=== PATIENT | female | born 1995 | race Caucasian/White ===

== ENCOUNTER 2017-10-28 07:30 | Inpatient (IN) | payer MEDICAID ==
[2017-10-28] MEDS ORDERED: Water For Irrigation,Sterile 1,000 ML Container IRR PRN (09:40)
[2017-10-28] MEDS ORDERED: Misoprostol 200 MCG Tab PO PRN (09:40)
[2017-10-28] MEDS ORDERED: Lidocaine 1% 50 ML MDV INJECT PRN (09:40)
[2017-10-28] MEDS ORDERED: Nalbuphine 10 MG/1 ML Vial IVPUSH PRN ×2 (09:40→19:45)
[2017-10-28] MEDS ORDERED: Tranexamic Acid 1,000 MG in Sodium Chloride 0.9% 100 ML IV PRN (09:40)
[2017-10-28] MEDS ORDERED: Carboprost Tromethamine 250 MCG/1 ML Amp IM PRN (09:40)
[2017-10-28] MEDS ORDERED: Sodium Chloride 0.9% 10 ML Syringe FLUSH PRN (09:40)
[2017-10-28] MEDS ORDERED: Butorphanol 1 MG/ML SDV IVPUSH PRN (09:40)
[2017-10-28] MEDS ORDERED: Sodium Chloride 0.9% 2.5 ML Syringe FLUSH PRN (09:40)
[2017-10-28] MEDS ORDERED: Methylergonovine 0.2 MG/1 ML Amp IM PRN (09:40)
[2017-10-28] MEDS ORDERED: Oxytocin/0.9 % Sodium Chloride 30 UNIT/500 ML BAG IV SCH ×2 (09:45→15:00)
[2017-10-28] MEDS ORDERED: Lactated Ringers 1,000 ML IV SCH ×2 (09:45→19:45)
[2017-10-28] MEDS ORDERED: Misoprostol 25 MCG (1/4 of 100 MCG) Tab PO ONE (09:45)
[2017-10-28] MEDS ORDERED: Misoprostol 25 MCG (1/4 of 100 MCG) Tab VAG ONE (09:45)
[2017-10-28] MEDS ORDERED: Ampicillin 2 GM in Sodium Chloride 0.9% 100 ML IV ONE (10:00)
[2017-10-28] MEDS ORDERED: Dextrose 5%-Lactated Ringers 1,000 ML IV SCH (10:00)
[2017-10-28] MEDS ORDERED: Terbutaline 1 MG/ML SDV SUBCUT PRN (10:16)
[2017-10-28] MEDS: Dextrose 5%-0.9% NaCl 1,000 ML IV SCH ×2 (10:34→21:41)
[2017-10-28] MEDS: Ampicillin 1 GM in Sodium Chloride 0.9% 50 ML IV SCH ×2 (13:57→17:48)
--- NOTE | 2017-10-28 16:34 | PCM.PREANE ---
Preanesthetic Assessment - Anesthesia/Transfusion/Family Hx Anesthesia History: No Prior Anesthesia Family History of Anesthesia Reaction: No - Review of Systems General: No Symptoms Pulmonary: No Symptoms Cardiovascular: No Symptoms Gastrointestinal: No Symptoms Neurological: No Symptoms Other: Reports: None - Physical Assessment Height: 5 ft 2 in Weight: 78.925 kg ASA Class: 2 Mental Status: Alert & Oriented x3 Airway Class: Mallampati = 2 Dentition: Reports: Normal Dentition Thyro-Mental Finger Breadths: 3 Mouth Opening Finger Breadths: 3 ROM/Head Extension: Full Lungs: Clear to Auscultation, Normal Respiratory Effort Cardiovascular: Regular Rate, Regular Rhythm - Lab Values: Laboratory Last Values WBC 10.24 K/uL (4.0-11.0) 10/28/17 10:00 RBC 4.36 M/uL (4.30-5.90) 10/28/17 10:00 Hgb 12.5 g/dL (12.0-16.0) 10/28/17 10:00 Hct 36.4 % (36.0-46.0) 10/28/17 10:00 MCV 83.5 fL (80.0-98.0) 10/28/17 10:00 MCH 28.7 pg (27.0-32.0) 10/28/17 10:00 MCHC 34.3 g/dL (31.0-37.0) 10/28/17 10:00 RDW Std Deviation 42.4 fl (28.0-62.0) 10/28/17 10:00 RDW Coeff of Amira 14 % (11.0-15.0) 10/28/17 10:00 Plt Count 266 K/uL (150-400) 10/28/17 10:00 MPV 9.80 fL (7.40-12.00) 10/28/17 10:00 Nucleated RBC % 0.0 /100WBC 10/28/17 10:00 Nucleated RBCs # 0 K/uL 10/28/17 10:00 POC Glucose 107 mg/dL (60-110) 10/28/17 15:11 Membrane Rupture POSITIVE 10/28/17 08:10 Blood Type B POSITIVE 10/28/17 10:00 Antibody Screen NEGATIVE 10/28/17 10:00 - Allergies Allergies/Adverse Reactions: Allergies Allergy/AdvReac Type Severity Reaction Status Date / Time No Known Allergies Allergy Verified 10/28/17 07:41 - Acknowledgements Anesthesia Type Planned: Epidural Pt an Appropriate Candidate for the Planned Anesthesia: Yes Alternatives and Risks of Anesthesia Discussed w Pt/Guardian: Yes Pt/Guardian Understands and Agrees with Anesthesia Plan: Yes PreAnesthesia Questionnaire HEENT History: Reports: None Cardiovascular History: Reports: None Respiratory History: Reports: None Gastrointestinal History: Reports: GERD Genitourinary History: Reports: None 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: : 2 Para: 0 LMP (Approximate): Musculoskeletal History: Reports: None Neurological History: Reports: Migraines Psychiatric History: Reports: Anxiety Endocrine/Metabolic History: Reports: Diabetes, Type I Hematologic History: Reports: None Immunologic History: Reports: None Oncologic (Cancer) History: Reports: None Dermatologic History: Reports: Eczema - Infectious Disease History Infectious Disease History: Reports: None - CURRENT (IN HOUSE) MEDS Current Meds: Current Medications Butorphanol Tartrate (Stadol) 1 mg IVPUSH Q1H PRN PRN Reason: Pain Carboprost Tromethamine (Hemabate Ds) 250 mcg IM ASDIRECTED PRN PRN Reason: Post Hemorrhage Tranexamic Acid 1,000 mg/ (Sodium Chloride) 110 mls @ 660 mls/hr IV ONETIME PRN PRN Reason: Bleeding Lactated Ringer's (Ringers, Lactated) 1,000 mls @ 150 mls/hr IV ASDIRECTED EL Last Infusion: 10/28/17 10:58 Dose: 30 mls/hr Oxytocin/Sodium Chloride (Oxytocin 30 Unit/500 Ml-Ns) 30 unit in 500 mls @ 999 mls/hr IV TITRATE EL Insulin Human Regular 100 unit (/ Sodium Chloride) 100 mls @ 0.5 mls/hr IV TITRATE EL; 0.5 UNIT/HR PRN Reason: Protocol Last Titration: 10/28/17 16:03 Dose: 0.5 unit/hr, 0.5 mls/hr Dextrose/Sodium Chloride (Dextrose 5%-Normal Saline) 1,000 mls @ 100 mls/hr IV ASDIRECTED EL Last Admin: 10/28/17 10:34 Dose: 100 mls/hr Ampicillin Sodium 1 gm/ Sodium (Chloride) 50 mls @ 100 mls/hr IV Q4H EL Last Admin: 10/28/17 13:57 Dose: 100 mls/hr Oxytocin/Sodium Chloride (Oxytocin 30 Unit/500 Ml-Ns) 30 unit in 500 mls @ 2 mls/hr IV TITRATE EL; 2 MUNITS/MIN PRN Reason: Protocol Last Admin: 10/28/17 15:19 Dose: 2 munits/min, 2 mls/hr Lidocaine HCl (Xylocaine 1%) 50 ml INJECT .ONCE PRN PRN Reason: Laceration repair Methylergonovine Maleate (Methergine) 0.2 mg IM ASDIRECTED PRN PRN Reason: Post Hemorrhage Misoprostol (Cytotec) 200 mcg PO .ONCE PRN PRN Reason: Post Hemorrhage Nalbuphine HCl (Nubain) 10 mg IVPUSH Q1H PRN PRN Reason: Pain (severe 7-10) Last Admin: 10/28/17 13:11 Dose: 10 mg Sodium Chloride (Saline Flush) 10 ml FLUSH ASDIRECTED PRN PRN Reason: Keep Vein Open Sodium Chloride (Saline Flush) 2.5 ml FLUSH ASDIRECTED PRN PRN Reason: Keep Vein Open Sterile Water (Sterile Water For Irrigation) 1,000 ml IRR ASDIRECTED PRN PRN Reason: delivery Terbutaline Sulfate (Brethine) 0.25 mg SUBCUT ASDIRECTED PRN PRN Reason: Tacysystole Discontinued Medications Ampicillin Sodium 2 gm/ Sodium (Chloride) 100 mls @ 200 mls/hr IV ONETIME ONE Stop: 10/28/17 10:29 Last Admin: 10/28/17 10:17 Dose: 200 mls/hr Misoprostol (Cytotec) 25 mcg PO ONETIME ONE Stop: 10/28/17 09:46 Last Admin: 10/28/17 10:22 Dose: 25 mcg Misoprostol (Cytotec) 25 mcg VAG ONETIME ONE Stop: 10/28/17 09:46 Last Admin: 10/28/17 10:45 Dose: 25 mcg
[2017-10-28] MEDS ORDERED: Terbutaline 1 MG/ML SDV SUBCUT ONE (18:07)
[2017-10-28] MEDS ORDERED: Clindamycin Phosphate in D5W 900 MG in Premix Bag 1 BAG IV ONE ×2 (18:26)
[2017-10-28] MEDS ORDERED: Clindamycin Phosphate in D5W 50 ML IV ONE (18:29)
[2017-10-28] MEDS ORDERED: Bupivacaine 0.5% 10 ML SDV ONE (18:35)
[2017-10-28] MEDS ORDERED: Ondansetron 4 MG/2 ML SDV ONE (18:55)
[2017-10-28] MEDS ORDERED: Morphine PF 1 MG/ML Amp ONE (19:03)
[2017-10-28] MEDS ORDERED: Phenylephrine/Normal Saline 100 MCG/ML 10 ML Syringe ONE (19:20)
[2017-10-28] MEDS ORDERED: Lanolin 100% Cream 7 GM Tube TOP PRN (19:40)
[2017-10-28] MEDS ORDERED: Simethicone 80 MG Tab.Chew PO PRN (19:40)
[2017-10-28] MEDS ORDERED: Bisacodyl 10 MG Supp RECTAL PRN (19:40)
[2017-10-28] MEDS ORDERED: Aluminum Hydroxide/Magnesium Hydroxide/Simethicone Susp 30 ML Cup PO PRN (19:40)
[2017-10-28] MEDS ORDERED: Ondansetron 4 MG/2 ML SDV IVPUSH PRN (19:40)
[2017-10-28] MEDS ORDERED: diphenhydrAMINE 50 MG/ML SDV IVPUSH PRN ×2 (19:40→19:45)
[2017-10-28] MEDS ORDERED: Naloxone 0.4 MG/ML Syringe IVPUSH PRN (19:45)
[2017-10-28] MEDS ORDERED: fentaNYL 100 MCG/2 ML SDV IVPUSH PRN (19:45)
--- NOTE | 2017-10-28 19:53 | PCM.OPNOTE ---
- General Post-Op/Procedure Note Date of Surgery/Procedure: 10/28/17 Operative Procedure(s): Primary LTCS Findings: Viable male APGARs 7, 9 weight 2920 gm. Intact placenta with 3v cord. Clear amniotic fluid. Normal appearing pelvis Pre Op Diagnosis: 38 weeks IUP. SROM. Abnormal heart tones Post-Op Diagnosis: Same Anesthesia Technique: Epidural Primary Surgeon: Prachi Chiu Fluid Replacement, Intraop: 1,500 EBL in mLs: 800 Condition: Good Free Text/Narrative:: Dictation [id number]
[2017-10-28] MEDS: Ketorolac 30 MG/ML SDV IVPUSH SCH (19:55)
--- NOTE | 2017-10-28 19:57 | PCM.POSTAN ---
POST ANESTHESIA ASSESSMENT - MENTAL STATUS Mental Status: Alert, Oriented - VITAL SIGNS Pulse Rate: 94 SaO2: 100 Resp Rate: 22 Blood Pressure: 97/50 - RESPIRATORY Respiratory Status: Respiratory Rate WNL, Airway Patent, O2 Saturation Stable - CARDIOVASCULAR CV Status: Pulse Rate WNL, Blood Pressure Stable - GASTROINTESTINAL GI Status: No Symptoms - PAIN Pain Score: 0 - POST OP HYDRATION Hydration Status: Adequate & Stable
--- NOTE | 2017-10-29 00:43 | OR ---
SURGEON: Prachi Chiu M.D. DATE OF PROCEDURE: 10/28/2017 PREOPERATIVE DIAGNOSES: 1. 38-week intrauterine . 2. Spontaneous rupture of membranes. 3. Abnormal heart tones. POSTOPERATIVE DIAGNOSES: 1. 38-week intrauterine . 2. Spontaneous rupture of membranes. 3. Abnormal heart tones. PROCEDURE: Primary low transverse section via Pfannenstiel skin incision. ANESTHESIA: Epidural. ESTIMATED BLOOD LOSS: 800 mL. FLUIDS: 1500 mL crystalloid. COMPLICATIONS: None. FINDINGS: Viable male. scores 7 at 1 minute, 9 at 5 minutes. Weight of 2920 g. Intact placenta and three-vessel cord. Nuchal cord noted. Clear amniotic fluid. Normal appearing pelvis. DISPOSITION: The patient to PACU, stable. to nursery. PROCEDURE DETAILS: Molly is a 22-year-old, G1, P0, at 38 weeks gestation, who presented this morning with spontaneous rupture of membranes. Clear fluid was noted. She is group B beta strep positive. She was admitted. Routine labs drawn. Ampicillin prophylaxis was initiated. With no evidence of active labor, attempted to do a Pitocin induction. This was all managed by Dr. العراقي. With the addition of Pitocin, there were variable decelerations noted. The patient underwent epidural, became more comfortable. Once she was 3 cm, an IUPC before amnioinfusion was placed as well as FSE; however, continued to have deep variables with attempted Pitocin in an effort to get the patient into labor. Therefore, given the repetitive decelerations and remote from delivery, decision was made to proceed with delivery. This decision was made by Dr. العراقي; however, at that time, we were doing change of shift recall duties and I directly assumed care of the patient as we were getting ready to go for the C- section. I discussed the case with the patient and Dr. العراقي briefly. The patient is agreeable to plan of care. The patient taken to the operating room, where she underwent spinal anesthetic, was placed in dorsal supine position with a leftward tilt. SCDs to lower extremities. Bernardo to gravity. She was prepped and draped in the usual sterile fashion. Received clindamycin prophylactically. Time-out was performed. Anesthesia was found to be adequate. Pfannenstiel skin incision was created and carried down to the level of the rectus fascia, which was incised in the midline, lateralized on either side to grasp the fascia, was tented upward, dissected sharply and bluntly away from the underlying muscle. In a similar fashion, this was performed with the inferior aspect of the fascia. Rectus muscle was in the midline and peritoneum was entered. Rectus muscle and perineum were lateralized bluntly. Uterine position and position palpated. Self-retaining retractor gently placed. Uterovesical reflection was visualized. Bladder flap was created sharply and bluntly. Bladder was mobilized away from the lower uterine segment. Low transverse hysterotomy was performed. Uterine cavity was entered bluntly with the scalpel. Hysterotomy was lateralized bluntly. Infant's head was flexed and delivered from the pelvis. Abundant cord extravasated at this time as well. The fundal pressure was applied. The head was delivered, followed by anterior shoulder, posterior shoulder, and remainder of the body without difficulty. The 's oropharynx and nares were bulb suctioned. Cord clamped x2 and cut. was handed off to attending physician, Dr. Merlos. Cord arterial, cord venous, cord blood sampling was obtained. The placenta was now delivered. Uterine cavity was cleared of all clot and debris. The hysterotomy was repaired using 0 Vicryl in a continuous running fashion followed by a re-imbricating layer. Two areas of oozing in the midline were briefly ligated with [id number] sutures. Hemostasis thereafter evident. Posterior aspect of the uterus inspected, no defects or hematomas found to be forming. The region was well irrigated and suction dried. Uterus returned to the abdominal cavity. Colonic gutters cleared of all clot and debris. Hysterotomy was inspected and found to be hemostatic. Self-retaining retractor now gently placed. Bladder blade was placed. Hysterotomy was again inspected and found to be hemostatic. Bladder blade was removed. The rectus muscles were now reapproximated using 0 Vicryl in inverted mattress suture technique. Anterior aspect of the muscle, posterior aspect of the fascia closely inspected. Any areas of oozing were cauterized. The rectus fascia was reapproximated using 0 Vicryl in a continuous running fashion beginning laterally on either side and meeting in the midline. Subcutaneous tissue was now well irrigated and suction dried. Any areas of oozing were cauterized. Skin edges were reapproximated using 3-0 Vicryl in a subcuticular fashion, followed by re-imbrication with 1/2-inch Steri-Strips and Mastisol. Uterus remains firm. Sponge, instrument, and needle counts were correct x2. The patient tolerated the procedure well. She will go to PACU in stable condition, to nursery. OWEN / KORIN /[id number]
--- NOTE | 2017-10-29 01:03 | PCM.SN ---
- Free Text/Narrative Note: I was notified on the patients discharge from PACU by the VIBRATOR EQUIPMENT TESTER that the patient had some left eye redness and swelling after administration of the Toradol. At that time I did not believe this to be from the Toradol and more likely from the patient itching her face secondary to the Duramorph. Again I was notified at 0000 by OB RN, at that time I told the nurse to notify Dr Chiu if they were truly concerned about allergic reaction. The patient does currently have Benadryl ordered if needed.
[2017-10-29] MEDS: Ketorolac 30 MG/ML SDV IVPUSH SCH ×4 (02:04→19:52)
[2017-10-29] MEDS ORDERED: NACL ONE (05:50)
[2017-10-29] MEDS ORDERED: DEXTROSE ONE (05:50)
[2017-10-29 05:58] LABS: CHLORIDE,CL 106 mmol/L (98-107); SODIUM,NA 136 mmol/L (136-145)
[2017-10-29] MEDS: Dextrose 5%-0.9% NaCl 1,000 ML IV SCH (06:04)
[2017-10-29] MEDS: Docusate Sodium 100 MG Cap PO SCH ×3 (08:05→19:59)
--- NOTE | 2017-10-29 09:59 | PCM.PNPP ---
- General Info Date of Service: 10/29/17 Functional Status: Reports: Pain Controlled, Tolerating Diet, Ambulating, Urinating - Review of Systems General: Denies: Fever, Weakness Pulmonary: Denies: Shortness of Breath Cardiovascular: Denies: Palpitations, Lightheadedness Gastrointestinal: Reports: Flatus. Denies: Nausea, Vomiting Genitourinary: Denies: Flank Pain Skin: Reports: No Symptoms Neurological: Denies: Headache Psychiatric: Reports: No Symptoms - General Info Date of Service: 10/29/17 - Patient Data Vital Signs - Most Recent: Last Vital Signs Temp 36.6 C 10/29/17 08:00 Pulse 101 H 10/29/17 09:00 Resp 16 10/29/17 09:00 BP 108/64 10/29/17 08:00 Pulse Ox 98 10/29/17 09:00 Weight - Most Recent: 78.925 kg I&O - Last 24 Hours: Intake & Output 10/28/17 10/29/17 10/29/17 22:59 06:59 14:59 Intake Total 2500 1700 Output Total 75 250 Balance 2425 1450 Lab Results - Last 24 Hours: Laboratory Results - last 24 hr 10/28/17 10/28/17 10/28/17 Range/Units 10:00 10:00 10:12 WBC 10.24 (4.0-11.0) K/uL RBC 4.36 (4.30-5.90) M/uL Hgb 12.5 (12.0-16.0) g/dL Hct 36.4 (36.0-46.0) % MCV 83.5 (80.0-98.0) fL MCH 28.7 (27.0-32.0) pg MCHC 34.3 (31.0-37.0) g/dL RDW Std Deviation 42.4 (28.0-62.0) fl RDW Coeff of Amira 14 (11.0-15.0) % Plt Count 266 (150-400) K/uL MPV 9.80 (7.40-12.00) fL Nucleated RBC % 0.0 /100WBC Nucleated RBCs # 0 K/uL Sodium (136-145) mmol/L Potassium (3.5-5.1) mmol/L Chloride (98-107) mmol/L Carbon Dioxide (21.0-32.0) mmol/L BUN (7.0-18.0) mg/dL Creatinine (0.6-1.0) mg/dL Est Cr Clr Drug Dosing mL/min Estimated GFR (MDRD) ml/min Glucose (74-106) mg/dL POC Glucose 85 (60-110) mg/dL Calcium (8.5-10.1) mg/dL Blood Type B POSITIVE Antibody Screen NEGATIVE 10/28/17 10/28/17 10/28/17 Range/Units 11:24 12:05 13:04 WBC (4.0-11.0) K/uL RBC (4.30-5.90) M/uL Hgb (12.0-16.0) g/dL Hct (36.0-46.0) % MCV (80.0-98.0) fL MCH (27.0-32.0) pg MCHC (31.0-37.0) g/dL RDW Std Deviation (28.0-62.0) fl RDW Coeff of Amira (11.0-15.0) % Plt Count (150-400) K/uL MPV (7.40-12.00) fL Nucleated RBC % /100WBC Nucleated RBCs # K/uL Sodium (136-145) mmol/L Potassium (3.5-5.1) mmol/L Chloride (98-107) mmol/L Carbon Dioxide (21.0-32.0) mmol/L BUN (7.0-18.0) mg/dL Creatinine (0.6-1.0) mg/dL Est Cr Clr Drug Dosing mL/min Estimated GFR (MDRD) ml/min Glucose (74-106) mg/dL POC Glucose 71 76 131 H (60-110) mg/dL Calcium (8.5-10.1) mg/dL Blood Type Antibody Screen 10/28/17 10/28/17 10/28/17 Range/Units 14:04 15:11 16:02 WBC (4.0-11.0) K/uL RBC (4.30-5.90) M/uL Hgb (12.0-16.0) g/dL Hct (36.0-46.0) % MCV (80.0-98.0) fL MCH (27.0-32.0) pg MCHC (31.0-37.0) g/dL RDW Std Deviation (28.0-62.0) fl RDW Coeff of Amira (11.0-15.0) % Plt Count (150-400) K/uL MPV (7.40-12.00) fL Nucleated RBC % /100WBC Nucleated RBCs # K/uL Sodium (136-145) mmol/L Potassium (3.5-5.1) mmol/L Chloride (98-107) mmol/L Carbon Dioxide (21.0-32.0) mmol/L BUN (7.0-18.0) mg/dL Creatinine (0.6-1.0) mg/dL Est Cr Clr Drug Dosing mL/min Estimated GFR (MDRD) ml/min Glucose (74-106) mg/dL POC Glucose 107 107 98 (60-110) mg/dL Calcium (8.5-10.1) mg/dL Blood Type Antibody Screen 10/28/17 10/28/17 10/28/17 Range/Units 17:07 17:54 19:44 WBC (4.0-11.0) K/uL RBC (4.30-5.90) M/uL Hgb (12.0-16.0) g/dL Hct (36.0-46.0) % MCV (80.0-98.0) fL MCH (27.0-32.0) pg MCHC (31.0-37.0) g/dL RDW Std Deviation (28.0-62.0) fl RDW Coeff of Amira (11.0-15.0) % Plt Count (150-400) K/uL MPV (7.40-12.00) fL Nucleated RBC % /100WBC Nucleated RBCs # K/uL Sodium (136-145) mmol/L Potassium (3.5-5.1) mmol/L Chloride (98-107) mmol/L Carbon Dioxide (21.0-32.0) mmol/L BUN (7.0-18.0) mg/dL Creatinine (0.6-1.0) mg/dL Est Cr Clr Drug Dosing mL/min Estimated GFR (MDRD) ml/min Glucose (74-106) mg/dL POC Glucose 105 112 H 132 H (60-110) mg/dL Calcium (8.5-10.1) mg/dL Blood Type Antibody Screen 10/28/17 10/29/17 10/29/17 Range/Units 20:45 02:34 05:25 WBC (4.0-11.0) K/uL RBC (4.30-5.90) M/uL Hgb 9.7 L (12.0-16.0) g/dL Hct 28.7 L (36.0-46.0) % MCV (80.0-98.0) fL MCH (27.0-32.0) pg MCHC (31.0-37.0) g/dL RDW Std Deviation (28.0-62.0) fl RDW Coeff of Amira (11.0-15.0) % Plt Count (150-400) K/uL MPV (7.40-12.00) fL Nucleated RBC % /100WBC Nucleated RBCs # K/uL Sodium (136-145) mmol/L Potassium (3.5-5.1) mmol/L Chloride (98-107) mmol/L Carbon Dioxide (21.0-32.0) mmol/L BUN (7.0-18.0) mg/dL Creatinine (0.6-1.0) mg/dL Est Cr Clr Drug Dosing mL/min Estimated GFR (MDRD) ml/min Glucose (74-106) mg/dL POC Glucose 125 H 94 (60-110) mg/dL Calcium (8.5-10.1) mg/dL Blood Type Antibody Screen 10/29/17 Range/Units 05:25 WBC (4.0-11.0) K/uL RBC (4.30-5.90) M/uL Hgb (12.0-16.0) g/dL Hct (36.0-46.0) % MCV (80.0-98.0) fL MCH (27.0-32.0) pg MCHC (31.0-37.0) g/dL RDW Std Deviation (28.0-62.0) fl RDW Coeff of Amira (11.0-15.0) % Plt Count (150-400) K/uL MPV (7.40-12.00) fL Nucleated RBC % /100WBC Nucleated RBCs # K/uL Sodium 136 (136-145) mmol/L Potassium 4.0 (3.5-5.1) mmol/L Chloride 106 (98-107) mmol/L Carbon Dioxide 21.6 (21.0-32.0) mmol/L BUN 12 (7.0-18.0) mg/dL Creatinine 0.6 (0.6-1.0) mg/dL Est Cr Clr Drug Dosing 118.29 mL/min Estimated GFR (MDRD) > 60.0 ml/min Glucose 91 (74-106) mg/dL POC Glucose (60-110) mg/dL Calcium 8.1 L (8.5-10.1) mg/dL Blood Type Antibody Screen Med Orders - Current: Current Medications Al Hydroxide/Mg Hydroxide (Mag-Al Plus) 30 ml PO Q8H PRN PRN Reason: Heartburn Bisacodyl (Dulcolax) 10 mg RECTAL .ONCE PRN PRN Reason: Constipation Carboprost Tromethamine (Hemabate Ds) 250 mcg IM ASDIRECTED PRN PRN Reason: Post Hemorrhage Diphenhydramine HCl (Benadryl) 25 mg IVPUSH Q6H PRN PRN Reason: Itching or Nausea Diphenhydramine HCl (Benadryl) 25 mg IVPUSH Q4H PRN PRN Reason: Itching Stop: 10/29/17 19:46 Docusate Sodium (Colace) 100 mg PO BID [facility] Last Admin: 10/29/17 08:05 Dose: 100 mg Emollient Ointment (Lansinoh Hpa) 0 gm TOP ASDIRECTED PRN PRN Reason: Sore Nipples Fentanyl (Sublimaze) 50 mcg IVPUSH Q45M PRN PRN Reason: Pain (severe 7-10) Stop: 10/29/17 19:47 Tranexamic Acid 1,000 mg/ (Sodium Chloride) 110 mls @ 660 mls/hr IV ONETIME PRN PRN Reason: Bleeding Oxytocin/Sodium Chloride (Oxytocin 30 Unit/500 Ml-Ns) 30 unit in 500 mls @ 999 mls/hr IV TITRATE [facility] Dextrose/Sodium Chloride (Dextrose 5%-Normal Saline) 1,000 mls @ 100 mls/hr IV ASDIRECTED [facility] Last Admin: 10/29/17 06:04 Dose: 100 mls/hr Ampicillin Sodium 1 gm/ Sodium (Chloride) 50 mls @ 100 mls/hr IV Q4H [facility] Last Admin: 10/28/17 17:48 Dose: 100 mls/hr Oxytocin/Sodium Chloride (Oxytocin 30 Unit/500 Ml-Ns) 30 unit in 500 mls @ 2 mls/hr IV TITRATE EL; 2 MUNITS/MIN PRN Reason: Protocol Last Titration: 10/28/17 16:00 Dose: 0 munits/min, 0 mls/hr Lactated Ringer's (Ringers, Lactated) 1,000 mls @ 125 mls/hr IV ASDIRECTED EL Ibuprofen (Motrin) 800 mg PO Q8H PRN PRN Reason: mild pain or fever Ketorolac Tromethamine (Toradol) 30 mg IVPUSH Q6H [facility] Stop: 10/29/17 19:46 Last Admin: 10/29/17 08:05 Dose: 30 mg Methylergonovine Maleate (Methergine) 0.2 mg IM ASDIRECTED PRN PRN Reason: Post Hemorrhage Misoprostol (Cytotec) 200 mcg PO .ONCE PRN PRN Reason: Post Hemorrhage Nalbuphine HCl (Nubain) 5 mg IVPUSH Q3H PRN PRN Reason: Pruritis Stop: 10/29/17 19:46 Naloxone HCl (Narcan) 0.1 mg IVPUSH ONETIME PRN PRN Reason: Respiratory Depression Stop: 10/29/17 19:46 Ondansetron HCl (Zofran) 4 mg IVPUSH Q4H PRN PRN Reason: Nausea/Vomiting Oxycodone/Acetaminophen (Percocet 325-5 Mg) 1 tab PO Q4H PRN PRN Reason: Pain (moderate 4-6) Oxycodone/Acetaminophen (Percocet 325-5 Mg) 2 tab PO Q4H PRN PRN Reason: Pain (moderate 4-6) Simethicone (Simethicone) 80 mg PO Q4H PRN PRN Reason: Gas Sodium Chloride (Saline Flush) 10 ml FLUSH ASDIRECTED PRN PRN Reason: Keep Vein Open Discontinued Medications Bupivacaine HCl (Sensorcaine-Mpf 0.5%) Confirm Administered Dose 20 ml .ROUTE .STK-MED ONE Stop: 10/28/17 18:36 Butorphanol Tartrate (Stadol) 1 mg IVPUSH Q1H PRN PRN Reason: Pain Ampicillin Sodium 2 gm/ Sodium (Chloride) 100 mls @ 200 mls/hr IV ONETIME ONE Stop: 10/28/17 10:29 Last Admin: 10/28/17 10:17 Dose: 200 mls/hr Lactated Ringer's (Ringers, Lactated) 1,000 mls @ 150 mls/hr IV ASDIRECTED EL Last Infusion: 10/28/17 10:58 Dose: 30 mls/hr Insulin Human Regular 100 unit (/ Sodium Chloride) 100 mls @ 0.5 mls/hr IV TITRATE EL; 0.5 UNIT/HR PRN Reason: Protocol Last Titration: 10/28/17 17:55 Dose: 1 unit/hr, 1 mls/hr Fentanyl/Bupivacaine HCl (Bmddomau-Jnebw-Sy 2 Mcg/Ml-0.125%) Confirm Administered Dose 100 mls @ as directed EP .STK-MED ONE Stop: 10/28/17 16:38 Clindamycin Phosphate 900 mg/ (Premix) 50 mls @ 89.286 mls/hr IV ONETIME ONE Stop: 10/28/17 18:59 Last Admin: 10/28/17 18:36 Dose: 89.286 mls/hr Clindamycin Phosphate (Cleocin In D5w) Confirm Administered Dose 50 mls @ as directed IV .STK-MED ONE Stop: 10/28/17 18:30 Dextrose/Sodium Chloride (Dextrose 5%-1/4 Ns) Confirm Administered Dose 1,000 mls @ as directed .ROUTE .STK-MED ONE Stop: 10/29/17 05:51 Lidocaine HCl (Xylocaine 1%) 50 ml INJECT .ONCE PRN PRN Reason: Laceration repair Misoprostol (Cytotec) 25 mcg PO ONETIME ONE Stop: 10/28/17 09:46 Last Admin: 10/28/17 10:22 Dose: 25 mcg Misoprostol (Cytotec) 25 mcg VAG ONETIME ONE Stop: 10/28/17 09:46 Last Admin: 10/28/17 10:45 Dose: 25 mcg Morphine Sulfate (Duramorph Pf) Confirm Administered Dose 1 mg .ROUTE .STK-MED ONE Stop: 10/28/17 19:04 Nalbuphine HCl (Nubain) 10 mg IVPUSH Q1H PRN PRN Reason: Pain (severe 7-10) Last Admin: 10/28/17 13:11 Dose: 10 mg Ondansetron HCl (Zofran) Confirm Administered Dose 4 mg .ROUTE .STK-MED ONE Stop: 10/28/17 18:56 Phenylephrine HCl (Phenylephrine In Ns 100 Mcg/Ml) Confirm Administered Dose 1 mg .ROUTE .STK-MED ONE Stop: 10/28/17 19:21 Sodium Chloride (Saline Flush) 2.5 ml FLUSH ASDIRECTED PRN PRN Reason: Keep Vein Open Sterile Water (Sterile Water For Irrigation) 1,000 ml IRR ASDIRECTED PRN PRN Reason: delivery Terbutaline Sulfate (Brethine) 0.25 mg SUBCUT ASDIRECTED PRN PRN Reason: Tacysystole Last Admin: 10/28/17 18:08 Dose: 0.25 mg Terbutaline Sulfate (Brethine) 0.25 mg SUBCUT ONETIME ONE Stop: 10/28/17 18:08 - Recovery Exam Fundal Tone: Firm Fundal Level: 1 Fingerbreadths Below Umbilicus Fundal Placement: Midline Lochia Amount: Scant Lochia Color: Rubra/Red Perineum Description: Intact, Minimal Bruising/Swelling Episiotomy/Laceration: None Bladder Status: Indwelling Catheter in Place Urinary Elimination: Indwelling Catheter - Exam General: Alert, Oriented Lungs: Normal Respiratory Effort Cardiovascular: Regular Rate, Regular Rhythm GI/Abdominal Exam: Normal Bowel Sounds, Soft Extremities: Pedal Edema (trace). No: Di's Sign Skin: Warm, Dry, Intact Wound/Incisions: Dressing Dry and Intact Psy/Mental Status: Alert, Normal Affect - Problem List & Annotations (1) delivery delivered SNOMED Code(s): 046905961 Code(s): O82 - ENCOUNTER FOR DELIVERY WITHOUT INDICATION Status: Acute Current Visit: Yes - Problem List Review Problem List Initiated/Reviewed/Updated: Yes - My Orders Last 24 Hours: My Active Orders 10/28/17 19:40 Patient Status [ADT] Routine Ambulate [RC] PER UNIT ROUTINE Communication Order [RC] PER UNIT ROUTINE Communication Order [RC] PER UNIT ROUTINE Communication Order [RC] Per Unit Routine May Shower [RC] ASDIRECTED Notify Provider Intake and Out [RC] ASDIRECTED Notify Provider Vital Signs [RC] ASDIRECTED RT Incentive Spirometry [RC] Q2HWA Acetaminophen/oxyCODONE [Percocet 325-5 MG] 1 tab PO Q4H PRN Acetaminophen/oxyCODONE [Percocet 325-5 MG] 2 tab PO Q4H PRN Alum Hydrox/Mag Hydrox/Simeth [Mag-Al Plus] 30 ml PO Q8H PRN Bisacodyl [Dulcolax] 10 mg RECTAL .ONCE PRN Lanolin [Lansinoh HPA] See Dose Instructions TOP ASDIRECTED PRN Ondansetron [Zofran] 4 mg IVPUSH Q4H PRN Simethicone 80 mg PO Q4H PRN diphenhydrAMINE [Benadryl] 25 mg IVPUSH Q6H PRN Abdominal Binder [OM.PC] Routine Assess Lochia [WOMSER] Per Unit Routine Assess Uterine Involution [WOMSER] Per Unit Routine Breast Pump [WOMSER] Per Unit Routine Heat Therapy [OM.PC] Routine Ice Therapy [OM.PC] Routine Peripheral IV Discontinue [OM.PC] Routine Sequential Compression Device [OM.PC] Per Unit Routine 10/28/17 19:41 Antiembolic Devices [RC] PER UNIT ROUTINE 10/28/17 19:45 Ketorolac [Toradol] 30 mg IVPUSH Q6H Lactated Ringers [Ringers, Lactated] 1,000 ml IV ASDIRECTED 10/28/17 21:00 Docusate Sodium [Colace] 100 mg PO BID 10/28/17 Dinner Consistent Carbohydrate Diet [DIET] 10/30/17 03:00 Ibuprofen [Motrin] 800 mg PO Q8H PRN - Assessment Assessment:: POD 1 status post primary LTCS Type I DM--insulin pump - Plan Plan:: Last glucose was 94, patient is feeling well--no symptoms of hypoglycemia. She is encouraged to ambulate later. Will remove crane and allow to shower this afternoon. Will adjust basal rate on pump as indicated by glucose monitoring.
[2017-10-29] MEDS: Acetaminophen/oxyCODONE 325-5 MG Tab PO PRN ×2 (16:01→20:20)
--- NOTE | 2017-10-29 21:35 | PCM48HPAN ---
Post Anesthesia Note - EVALUATION WITHIN 48HRS OF ANESTHETIC Vital Signs in Normal Range: Yes Patient Participated in Evaluation: Yes Respiratory Function Stable: Yes Airway Patent: Yes Cardiovascular Function Stable: Yes Hydration Status Stable: Yes Pain Control Satisfactory: Yes Nausea and Vomiting Control Satisfactory: Yes Mental Status Recovered: Yes Pulse Rate: 94 Resp Rate: 16 Blood Pressure: 97/50
[2017-10-30] MEDS ORDERED: Ibuprofen 800 MG Tab PO PRN (02:00)
[2017-10-30] MEDS: Acetaminophen/oxyCODONE 325-5 MG Tab PO PRN ×2 (03:36→07:44)
[2017-10-30] MEDS: Docusate Sodium 100 MG Cap PO SCH (08:18)
--- NOTE | 2017-10-30 10:30 | PCM.PNPP ---
- General Info Date of Service: 10/30/17 Functional Status: Reports: Pain Controlled, Tolerating Diet, Ambulating, Urinating - Review of Systems General: Denies: Fever Pulmonary: Denies: Shortness of Breath Cardiovascular: Denies: Chest Pain, Palpitations, Lightheadedness Gastrointestinal: Reports: Abdominal Pain (incisional, controlled with pain meds ). Denies: Nausea, Vomiting Genitourinary: Denies: Flank Pain Psychiatric: Reports: No Symptoms - General Info Date of Service: 10/30/17 - Patient Data Vital Signs - Most Recent: Last Vital Signs Temp 37.4 C 10/30/17 03:48 Pulse 107 H 10/30/17 03:48 Resp 16 10/30/17 03:48 BP 142/69 H 10/30/17 03:48 Pulse Ox 100 10/30/17 03:48 Weight - Most Recent: 78.925 kg I&O - Last 24 Hours: Intake & Output 10/29/17 10/30/17 10/30/17 21:59 06:59 14:59 Output Total Balance Med Orders - Current: Current Medications Al Hydroxide/Mg Hydroxide (Mag-Al Plus) 30 ml PO Q8H PRN PRN Reason: Heartburn Bisacodyl (Dulcolax) 10 mg RECTAL .ONCE PRN PRN Reason: Constipation Carboprost Tromethamine (Hemabate Ds) 250 mcg IM ASDIRECTED PRN PRN Reason: Post Hemorrhage Diphenhydramine HCl (Benadryl) 25 mg IVPUSH Q6H PRN PRN Reason: Itching or Nausea Docusate Sodium (Colace) 100 mg PO BID [facility] Last Admin: 10/30/17 08:18 Dose: 100 mg Emollient Ointment (Lansinoh Hpa) 0 gm TOP ASDIRECTED PRN PRN Reason: Sore Nipples Tranexamic Acid 1,000 mg/ (Sodium Chloride) 110 mls @ 660 mls/hr IV ONETIME PRN PRN Reason: Bleeding Oxytocin/Sodium Chloride (Oxytocin 30 Unit/500 Ml-Ns) 30 unit in 500 mls @ 999 mls/hr IV TITRATE EL Dextrose/Sodium Chloride (Dextrose 5%-Normal Saline) 1,000 mls @ 100 mls/hr IV ASDIRECTED [facility] Last Admin: 10/29/17 06:04 Dose: 100 mls/hr Oxytocin/Sodium Chloride (Oxytocin 30 Unit/500 Ml-Ns) 30 unit in 500 mls @ 2 mls/hr IV TITRATE EL; 2 MUNITS/MIN PRN Reason: Protocol Last Titration: 10/28/17 16:00 Dose: 0 munits/min, 0 mls/hr Lactated Ringer's (Ringers, Lactated) 1,000 mls @ 125 mls/hr IV ASDIRECTED EL Ibuprofen (Motrin) 800 mg PO Q8H PRN PRN Reason: mild pain or fever Last Admin: 10/30/17 03:36 Dose: 800 mg Methylergonovine Maleate (Methergine) 0.2 mg IM ASDIRECTED PRN PRN Reason: Post Hemorrhage Misoprostol (Cytotec) 200 mcg PO .ONCE PRN PRN Reason: Post Hemorrhage Ondansetron HCl (Zofran) 4 mg IVPUSH Q4H PRN PRN Reason: Nausea/Vomiting Oxycodone/Acetaminophen (Percocet 325-5 Mg) 1 tab PO Q4H PRN PRN Reason: Pain (moderate 4-6) Last Admin: 10/29/17 20:20 Dose: 1 tab Oxycodone/Acetaminophen (Percocet 325-5 Mg) 2 tab PO Q4H PRN PRN Reason: Pain (moderate 4-6) Last Admin: 10/30/17 07:44 Dose: 2 tab Simethicone (Simethicone) 80 mg PO Q4H PRN PRN Reason: Gas Sodium Chloride (Saline Flush) 10 ml FLUSH ASDIRECTED PRN PRN Reason: Keep Vein Open Discontinued Medications Bupivacaine HCl (Sensorcaine-Mpf 0.5%) Confirm Administered Dose 20 ml .ROUTE .STK-MED ONE Stop: 10/28/17 18:36 Butorphanol Tartrate (Stadol) 1 mg IVPUSH Q1H PRN PRN Reason: Pain Diphenhydramine HCl (Benadryl) 25 mg IVPUSH Q4H PRN PRN Reason: Itching Stop: 10/29/17 19:46 Fentanyl (Sublimaze) 50 mcg IVPUSH Q45M PRN PRN Reason: Pain (severe 7-10) Stop: 10/29/17 19:47 Ampicillin Sodium 2 gm/ Sodium (Chloride) 100 mls @ 200 mls/hr IV ONETIME ONE Stop: 10/28/17 10:29 Last Admin: 10/28/17 10:17 Dose: 200 mls/hr Lactated Ringer's (Ringers, Lactated) 1,000 mls @ 150 mls/hr IV ASDIRECTED [facility] Last Infusion: 10/28/17 10:58 Dose: 30 mls/hr Insulin Human Regular 100 unit (/ Sodium Chloride) 100 mls @ 0.5 mls/hr IV TITRATE EL; 0.5 UNIT/HR PRN Reason: Protocol Last Titration: 10/28/17 17:55 Dose: 1 unit/hr, 1 mls/hr Ampicillin Sodium 1 gm/ Sodium (Chloride) 50 mls @ 100 mls/hr IV Q4H EL Last Admin: 10/28/17 17:48 Dose: 100 mls/hr Fentanyl/Bupivacaine HCl (Pchcxmfd-Hknzp-Hc 2 Mcg/Ml-0.125%) Confirm Administered Dose 100 mls @ as directed EP .STK-MED ONE Stop: 10/28/17 16:38 Clindamycin Phosphate 900 mg/ (Premix) 50 mls @ 89.286 mls/hr IV ONETIME ONE Stop: 10/28/17 18:59 Last Admin: 10/28/17 18:36 Dose: 89.286 mls/hr Clindamycin Phosphate (Cleocin In D5w) Confirm Administered Dose 50 mls @ as directed IV .STK-MED ONE Stop: 10/28/17 18:30 Dextrose/Sodium Chloride (Dextrose 5%-1/4 Ns) Confirm Administered Dose 1,000 mls @ as directed .ROUTE .STK-MED ONE Stop: 10/29/17 05:51 Ketorolac Tromethamine (Toradol) 30 mg IVPUSH Q6H EL Stop: 10/29/17 19:46 Last Admin: 10/29/17 19:52 Dose: 30 mg Lidocaine HCl (Xylocaine 1%) 50 ml INJECT .ONCE PRN PRN Reason: Laceration repair Misoprostol (Cytotec) 25 mcg PO ONETIME ONE Stop: 10/28/17 09:46 Last Admin: 10/28/17 10:22 Dose: 25 mcg Misoprostol (Cytotec) 25 mcg VAG ONETIME ONE Stop: 10/28/17 09:46 Last Admin: 10/28/17 10:45 Dose: 25 mcg Morphine Sulfate (Duramorph Pf) Confirm Administered Dose 1 mg .ROUTE .STK-MED ONE Stop: 10/28/17 19:04 Nalbuphine HCl (Nubain) 10 mg IVPUSH Q1H PRN PRN Reason: Pain (severe 7-10) Last Admin: 10/28/17 13:11 Dose: 10 mg Nalbuphine HCl (Nubain) 5 mg IVPUSH Q3H PRN PRN Reason: Pruritis Stop: 10/29/17 19:46 Naloxone HCl (Narcan) 0.1 mg IVPUSH ONETIME PRN PRN Reason: Respiratory Depression Stop: 10/29/17 19:46 Ondansetron HCl (Zofran) Confirm Administered Dose 4 mg .ROUTE .STK-MED ONE Stop: 10/28/17 18:56 Phenylephrine HCl (Phenylephrine In Ns 100 Mcg/Ml) Confirm Administered Dose 1 mg .ROUTE .STK-MED ONE Stop: 10/28/17 19:21 Sodium Chloride (Saline Flush) 2.5 ml FLUSH ASDIRECTED PRN PRN Reason: Keep Vein Open Sterile Water (Sterile Water For Irrigation) 1,000 ml IRR ASDIRECTED PRN PRN Reason: delivery Terbutaline Sulfate (Brethine) 0.25 mg SUBCUT ASDIRECTED PRN PRN Reason: Tacysystole Last Admin: 10/28/17 18:08 Dose: 0.25 mg Terbutaline Sulfate (Brethine) 0.25 mg SUBCUT ONETIME ONE Stop: 10/28/17 18:08 - Recovery Exam Fundal Tone: Firm Fundal Level: 1 Fingerbreadths Below Umbilicus Fundal Placement: Midline Lochia Amount: Scant Lochia Color: Rubra/Red Perineum Description: Intact, Minimal Bruising/Swelling Episiotomy/Laceration: None Bladder Status: Voiding Urinary Elimination: Voided - Exam General: Alert Lungs: Normal Respiratory Effort Cardiovascular: Regular Rate, Regular Rhythm GI/Abdominal Exam: Normal Bowel Sounds, Soft, No Distention Extremities: Pedal Edema (trace). No: Di's Sign Skin: Warm, Dry, Intact Wound/Incisions: Healing Well, No Drainage. No: Erythema Psy/Mental Status: Alert, Normal Affect - Problem List & Annotations (1) delivery delivered SNOMED Code(s): 368317962 Code(s): O82 - ENCOUNTER FOR DELIVERY WITHOUT INDICATION Status: Acute Current Visit: Yes - Problem List Review Problem List Initiated/Reviewed/Updated: Yes - My Orders Last 24 Hours: My Active Orders 10/30/17 03:00 Ibuprofen [Motrin] 800 mg PO Q8H PRN 10/30/17 10:27 Ready for Discharge [RC] PER UNIT ROUTINE - Assessment Assessment:: POD 2 status post primary LTCS Type I DM--insulin pump - Plan Plan:: Glucoses have been well controlled, lowest has been 72. She is ready to go home today, thinks she will rest better at home. Discharge instructions reviewed. Follow up at [facility] 2 and 6 weeks. Infection and bleeding warnings reviewed. Has follow up with Dr Harman for diabetes management all ready arranged. Discharge to home.
== END 2017-10-30 10:33 | disposition home or self-care (01) | DRG 766 ==
LOC: MW.OBCHECK 07:30 → MW.OB 07:33 → MW.OBCHECK 08:14 → MW.OB 08:43 → OBSVTOIN 19:05
PROVIDERS: ADMIT Obstetrics & Gynecology; ATTEND Obstetrics & Gynecology
PROC: 10D00Z1 Extraction of Products of Conception, Low, Open Approach (ICD-10-PCS; principal; 2017-10-28)
PROC: 3E033VJ Introduction of Other Hormone into Peripheral Vein, Percutaneous Approach (ICD-10-PCS; 2017-10-28)
PROC: 10H07YZ Insertion of Other Device into Products of Conception, Via Natural or Artificial Opening (ICD-10-PCS; 2017-10-28)
PROC: 3E0E7GC Introduction of Other Therapeutic Substance into Products of Conception, Via Natural or Artificial Opening (ICD-10-PCS; 2017-10-28)
PROC: 4A1H7CZ Monitoring of Products of Conception, Cardiac Rate, Via Natural or Artificial Opening (ICD-10-PCS; 2017-10-28)
PROC: 00HU33Z Insertion of Infusion Device into Spinal Canal, Percutaneous Approach (ICD-10-PCS; 2017-10-28)
PROC: 3E0R3BZ Introduction of Anesthetic Agent into Spinal Canal, Percutaneous Approach (ICD-10-PCS; 2017-10-28)
DX: O24.02 Pre-existing type 1 diabetes mellitus, in childbirth (principal); E10.9 Type 1 diabetes mellitus without complications; O76 Abnormality in fetal heart rate and rhythm complicating labor and delivery; O99.824 Streptococcus B carrier state complicating childbirth; Z3A.38 38 weeks gestation of pregnancy; Z37.0 Single live birth; Z96.41 Presence of insulin pump (external) (internal)
CPT/HCPCS: 01967; 01968; 36415; 59025; 80048; 82962; 84112; 85014; 85018; 85027; 86850; 86900; 86901; A9270-GY; J0290; J1815-GY; J1885; J2274; J2300; J2405; J2590; J3105; J7030; J7042; J7050; J7120

== ENCOUNTER 2019-05-23 01:43 | Emergency (ER) | payer MEDICAID ==
--- NOTE | 2019-05-23 02:12 | EDM.PDOC ---
ED HPI GENERAL MEDICAL PROBLEM - General Chief Complaint: Genitourinary Problem Stated Complaint: LOWER ABDOMINAL PAIN Time Seen by Provider: 05/23/19 02:05 - History of Present Illness INITIAL COMMENTS - FREE TEXT/NARRATIVE: HISTORY AND PHYSICAL: History of present illness: Patient is a 24-year-old female with a history of irregular menstrual cycles and recently just restarted on oral contraceptives this month and presents with complaints of suprapubic pain and pressure that started after urinating this morning. In the prior 24 hours the patient had no dysuria frequency urgency flank pain abdominal pain nausea vomiting or fevers and was passing her urine without issues and had no vaginal discharge or irregular vaginal bleeding. This morning she got up to go to the bathroom and she did not have urgency or discomfort with the urination but after passing the urine she started having spasm-like contraction-like feeling in the lower mid abdomen. It does not localize right or left and it is not associated with flank pain. Patient took 2 tablets of generic ibuprofen prior to coming here. The patient is a type I diabetic who uses an insulin pump and says that her blood sugar is very variable when she is not tightly controlling her insulin and her carb intake Review of systems: As per history of present illness and below otherwise all systems reviewed and negative. Past medical history: As per history of present illness and as reviewed below otherwise noncontributory. Surgical history: As per history of present illness and as reviewed below otherwise noncontributory. Social history: No reported history of drug or alcohol abuse. Family history: As per history of present illness and as reviewed below otherwise noncontributory. Physical exam: General: Well-developed well-nourished female who is nontoxic and vital signs are noted by me. She moves easily without distress in the ED HEENT: Atraumatic, normocephalic, negative for conjunctival pallor or scleral icterus, mucous membranes moist, throat clear, neck supple, nontender, trachea midline. Lungs: Clear to auscultation, breath sounds equal bilaterally, chest nontender. Heart: S1S2, regular rate and rhythm no overt murmurs Abdomen: Soft, nondistended, hypoactive bowel sounds. There is mild discomfort with palpation in the suprapubic area but does not localize right or left and there is no rebound or guarding Negative for masses or hepatosplenomegaly. Negative for costovertebral tenderness. Pelvis: Stable nontender. Genitourinary: Deferred. Rectal: Deferred. Extremities: Atraumatic, negative for cords or calf pain. Neurovascular unremarkable. Neuro: Awake, alert, oriented. Cranial nerves II through XII unremarkable. Cerebellum unremarkable. Motor and sensory unremarkable throughout. Exam nonfocal. Diagnostics: UA with reflex urine culture UCG CBC CMP lactic acid abdominal x-rays hemoglobin A1c Therapeutics: Saline lock, Toradol Bentyl by mouth I discussed with the patient her urine test which showed greater than 1000 glucose and trace ketones as well as her blood work which revealed a normal anion gap but a blood glucose of 314. The patient is a type I diabetic and usually has insulin pump in place but she says that when the pain started she took it off and came into the ED and has been off her pump for the last 4 hours. She says that she will re-position it when she gets home. She currently is feeling improved and is aware of all of her testing results and at this point with no fever no WBC count and her history as above I do not feel that a CAT scan is indicated and she agrees. I discussed with her using an over-the- counter stool softener and possibly MiraLAX help cleanse the colon and reduced bowel spasm. She does follow with a provider at [facility] which I've asked her to reconnect in light of today's lab tests. She is aware of for hemoglobin A1c of 7.3 which is similar to her last one done in the clinic. Impression: Lower abdominal pain/spasm, colonic constipation Type 1 diabetes with mild hyperglycemia, temporarily off insulin pump Definitive disposition and diagnosis as appropriate pending reevaluation and review of above. Pelvic Pain Score (Numeric/FACES): 6 - Related Data Allergies Allergy/AdvReac Type Severity Reaction Status Date / Time No Known Allergies Allergy Verified 05/23/19 01:59 Home Meds: Home Meds Insulin Lispro [Humalog] 1 unit SUBCUT QID 05/23/19 [History] Norgestimate-Ethinyl Estradiol [Tri-Sprintec Tablet] 1 ea PO DAILY 05/23/19 [ History] valACYclovir [Valtrex] 500 mg PO DAILY 05/23/19 [History] Past Medical History HEENT History: Reports: None Cardiovascular History: Reports: None Respiratory History: Reports: None Gastrointestinal History: Reports: GERD Genitourinary History: Reports: None [employer] History: Reports: Musculoskeletal History: Reports: None Neurological History: Reports: Migraines Psychiatric History: Reports: Anxiety Endocrine/Metabolic History: Reports: Diabetes, Type I Hematologic History: Reports: None Immunologic History: Reports: None Oncologic (Cancer) History: Reports: None Dermatologic History: Reports: Eczema - Infectious Disease History Infectious Disease History: Reports: Chicken Pox - Past Surgical History Female Surgical History: Reports: Section Social & Family History - Tobacco Use Smoking Status *Q: Never Smoker Second Hand Smoke Exposure: No - Caffeine Use Caffeine Use: Reports: None - Recreational Drug Use Recreational Drug Use: No ED ROS GENERAL - Review of Systems Review Of Systems: ROS reveals no pertinent complaints other than HPI. ED EXAM, GENERAL - Physical Exam Exam: See Below (See dictation) Course - Vital Signs Last Recorded V/S: Last Vital Signs Temp 36.2 C 05/23/19 01:56 Pulse 93 05/23/19 01:56 Resp 16 05/23/19 01:56 BP 102/73 05/23/19 01:56 Pulse Ox 100 05/23/19 01:56 - Orders/Labs/Meds Orders: Active Orders 24 hr Category Date Time Status CULTURE URINE [RM] Stat Lab 05/23/19 02:23 Received Sodium Chloride 0.9% [Saline Flush] Med 05/23/19 02:36 Active 10 ml FLUSH ASDIRECTED PRN Sodium Chloride 0.9% [Saline Flush] Med 05/23/19 02:36 Active 2.5 ml FLUSH ASDIRECTED PRN Saline Lock Insert [OM.PC] Stat Oth 05/23/19 02:36 Ordered Medication Orders Sodium Chloride (Saline Flush) 10 ml FLUSH ASDIRECTED PRN PRN Reason: Keep Vein Open Last Admin: 05/23/19 03:01 Dose: 10 ml Sodium Chloride (Saline Flush) 2.5 ml FLUSH ASDIRECTED PRN PRN Reason: Keep Vein Open Last Admin: 05/23/19 03:02 Dose: 2.5 ml Labs: Laboratory Tests 05/23/19 05/23/19 05/23/19 Range/Units 02:23 02:23 02:43 WBC 8.68 (4.0-11.0) K/uL RBC 5.02 (4.30-5.90) M/uL Hgb 15.4 (12.0-16.0) g/dL Hct 42.9 (36.0-46.0) % MCV 85.5 (80.0-98.0) fL MCH 30.7 (27.0-32.0) pg MCHC 35.9 (31.0-37.0) g/dL RDW Std Deviation 36.0 (28.0-62.0) fl RDW Coeff of Amira 12 (11.0-15.0) % Plt Count 249 (150-400) K/uL MPV 9.50 (7.40-12.00) fL Neut % (Auto) 65.5 (48.0-80.0) % Lymph % (Auto) 27.8 (16.0-40.0) % Barry % (Auto) 5.4 (0.0-15.0) % Eos % (Auto) 1.0 (0.0-7.0) % Baso % (Auto) 0.3 (0.0-1.5) % Neut # (Auto) 5.7 (1.4-5.7) K/uL Lymph # (Auto) 2.4 (0.6-2.4) K/uL Barry # (Auto) 0.5 (0.0-0.8) K/uL Eos # (Auto) 0.1 (0.0-0.7) K/uL Baso # (Auto) 0.0 (0.0-0.1) K/uL Nucleated RBC % 0.0 /100WBC Nucleated RBCs # 0 K/uL Lactate (0.20-2.00) mmol/L Sodium (136-145) mmol/L Potassium (3.5-5.1) mmol/L Chloride (98-107) mmol/L Carbon Dioxide (21.0-32.0) mmol/L BUN (7.0-18.0) mg/dL Creatinine (0.6-1.0) mg/dL Est Cr Clr Drug Dosing mL/min Estimated GFR (MDRD) ml/min Glucose (74-106) mg/dL Hemoglobin A1c (4.5-6.2) % Calcium (8.5-10.1) mg/dL Total Bilirubin (0.2-1.0) mg/dL AST (15-37) IU/L ALT (14-63) IU/L Alkaline Phosphatase (46-116) U/L Total Protein (6.4-8.2) g/dL Albumin (3.4-5.0) g/dL Globulin (2.6-4.0) g/dL Albumin/Globulin Ratio (0.9-1.6) Urine Color YELLOW Urine Appearance CLEAR Urine pH 6.5 (5.0-8.0) Ur Specific [place] 1.025 (1.001-1.035) Urine Protein NEGATIVE (NEGATIVE) mg/dL Urine Glucose (UA) >=1000 (NEGATIVE) mg/dL Urine Ketones TRACE H (NEGATIVE) mg/dL Urine Occult Blood NEGATIVE (NEGATIVE) Urine Nitrite NEGATIVE (NEGATIVE) Urine Bilirubin NEGATIVE (NEGATIVE) Urine Urobilinogen 0.2 (<2.0) EU/dL Ur Leukocyte Esterase NEGATIVE (NEGATIVE) Urine HCG, Qual NEGATIVE (NEGATIVE) 05/23/19 05/23/19 05/23/19 Range/Units 02:43 02:43 02:43 WBC (4.0-11.0) K/uL RBC (4.30-5.90) M/uL Hgb (12.0-16.0) g/dL Hct (36.0-46.0) % MCV (80.0-98.0) fL MCH (27.0-32.0) pg MCHC (31.0-37.0) g/dL RDW Std Deviation (28.0-62.0) fl RDW Coeff of Amira (11.0-15.0) % Plt Count (150-400) K/uL MPV (7.40-12.00) fL Neut % (Auto) (48.0-80.0) % Lymph % (Auto) (16.0-40.0) % Barry % (Auto) (0.0-15.0) % Eos % (Auto) (0.0-7.0) % Baso % (Auto) (0.0-1.5) % Neut # (Auto) (1.4-5.7) K/uL Lymph # (Auto) (0.6-2.4) K/uL Barry # (Auto) (0.0-0.8) K/uL Eos # (Auto) (0.0-0.7) K/uL Baso # (Auto) (0.0-0.1) K/uL Nucleated RBC % /100WBC Nucleated RBCs # K/uL Lactate 1.4 (0.20-2.00) mmol/L Sodium 134 L (136-145) mmol/L Potassium 4.2 (3.5-5.1) mmol/L Chloride 98 (98-107) mmol/L Carbon Dioxide 25.0 (21.0-32.0) mmol/L BUN 14 (7.0-18.0) mg/dL Creatinine 0.8 (0.6-1.0) mg/dL Est Cr Clr Drug Dosing 87.24 mL/min Estimated GFR (MDRD) > 60.0 ml/min Glucose 314 H (74-106) mg/dL Hemoglobin A1c 7.3 H (4.5-6.2) % Calcium 9.0 (8.5-10.1) mg/dL Total Bilirubin 0.4 (0.2-1.0) mg/dL AST 13 L (15-37) IU/L ALT 13 L (14-63) IU/L Alkaline Phosphatase 73 (46-116) U/L Total Protein 8.1 (6.4-8.2) g/dL Albumin 4.0 (3.4-5.0) g/dL Globulin 4.1 H (2.6-4.0) g/dL Albumin/Globulin Ratio 1.0 (0.9-1.6) Urine Color Urine Appearance Urine pH (5.0-8.0) Ur Specific [place] (1.001-1.035) Urine Protein (NEGATIVE) mg/dL Urine Glucose (UA) (NEGATIVE) mg/dL Urine Ketones (NEGATIVE) mg/dL Urine Occult Blood (NEGATIVE) Urine Nitrite (NEGATIVE) Urine Bilirubin (NEGATIVE) Urine Urobilinogen (<2.0) EU/dL Ur Leukocyte Esterase (NEGATIVE) Urine HCG, Qual (NEGATIVE) Meds: Medications Generic Name Dose Route Start Last Admin Trade Name Freq PRN Reason Stop Dose Admin Sodium Chloride 10 ml 05/23/19 02:36 05/23/19 03:01 Saline Flush FLUSH 10 ml ASDIRECTED PRN Administration Keep Vein Open Sodium Chloride 2.5 ml 05/23/19 02:36 05/23/19 03:02 Saline Flush FLUSH 2.5 ml ASDIRECTED PRN Administration Keep Vein Open Discontinued Medications Generic Name Dose Route Start Last Admin Trade Name Jeanna PRN Reason Stop Dose Admin Ketorolac Tromethamine 30 mg 05/23/19 02:36 05/23/19 03:01 Toradol IVPUSH 05/23/19 02:37 30 mg ONETIME ONE Administration Departure - Departure Time of Disposition: 03:52 Disposition: Home, Self-Care 01 Condition: Good Clinical Impression: Colonic constipation, Type 1 diabetes mellitus with hyperglycemia, Lower abdominal pain - Discharge Information Referrals: Jose Polanco MD [Primary Care Provider] - Forms: ED Department Discharge Additional Instructions: The following information is given to patients seen in the emergency department who are being discharged to home. This information is to outline your options for follow-up care. We provide all patients seen in our emergency department with a follow-up referral. The need for follow-up, as well as the timing and circumstances, are variable depending upon the specifics of your emergency department visit. If you don't have a primary care physician on staff, we will provide you with a referral. We always advise you to contact your personal physician following an emergency department visit to inform them of the circumstance of the visit and for follow-up with them and/or the need for any referrals to a consulting specialist. The emergency department will also refer you to a specialist when appropriate. This referral assures that you have the opportunity for followup care with a specialist. All of these measure are taken in an effort to provide you with optimal care, which includes your followup. Under all circumstances we always encourage you to contact your private physician who remains a resource for coordinating your care. When calling for followup care, please make the office aware that this follow-up is from your recent emergency room visit. If for any reason you are refused follow-up, please contact the [facility] emergency department at and ask to speak to the emergency department charge nurse. [address] [place] [address] His reconnect her insulin pump immediately when you arrive home and address your blood sugar as we discussed. Push more fluids and use [id number] stool softener and/or MiraLAX to help with the constipation that was seen on your x-rays as well as the bowel spasm that is occurring. Call and schedule follow-up appointment with your provider in the clinic and return to ER as needed and as discussed - My Orders Last 24 Hours: My Active Orders 05/23/19 02:23 CULTURE URINE [RM] Stat 05/23/19 02:36 Sodium Chloride 0.9% [Saline Flush] 10 ml FLUSH ASDIRECTED PRN Sodium Chloride 0.9% [Saline Flush] 2.5 ml FLUSH ASDIRECTED PRN Saline Lock Insert [OM.PC] Stat - Assessment/Plan Last 24 Hours: My Active Orders 05/23/19 02:23 CULTURE URINE [RM] Stat 05/23/19 02:36 Sodium Chloride 0.9% [Saline Flush] 10 ml FLUSH ASDIRECTED PRN Sodium Chloride 0.9% [Saline Flush] 2.5 ml FLUSH ASDIRECTED PRN Saline Lock Insert [OM.PC] Stat
[2019-05-23] MEDS ORDERED: Ketorolac 30 MG/ML SDV IVPUSH ONE (02:36)
[2019-05-23] MEDS ORDERED: Sodium Chloride 0.9% 2.5 ML Syringe FLUSH PRN (02:36)
[2019-05-23] MEDS ORDERED: Sodium Chloride 0.9% 10 ML Syringe FLUSH PRN (02:36)
[2019-05-23 03:16] LABS: BLOOD UREA NITROGEN,BUN 14 mg/dL (7.0-18.0); CHLORIDE,CL 98 mmol/L (98-107); GLUCOSE RANDOM 314 mg/dL (74-106); POTASSIUM,K 4.2 mmol/L (3.5-5.1); SODIUM,NA 134 mmol/L (136-145)
[2019-05-23 03:31] LABS: HEMOGLOBIN A1C 7.3 % (4.5-6.2)
--- NOTE | 2019-05-23 03:34 | CR ---
INDICATION: Abdominal pain TECHNIQUE: Abdomen 3 view. COMPARISON: None FINDINGS: Bowel: Views confirm fecal retention Soft tissues: No sign of free air. No sign of soft tissue mass. No suspicious calcifications. Bones: Unremarkable for age. IMPRESSION: Diffuse colonic fecal retention. Dictated by Juma Rendon MD @ 05/23/2019 3:33:25 AM Dictated by: Juma Rendon MD @ 05/23/2019 03:33:30 (Electronically Signed)
[2019-05-23] MEDS ORDERED: Dicyclomine 10 MG Cap PO ONE (03:54)
== END 2019-05-23 04:08 | disposition home or self-care (01) ==
LOC: MW.ED 01:43
DX: K59.09 Other constipation (principal); E10.65 Type 1 diabetes mellitus with hyperglycemia
CPT/HCPCS: 36415; 74019; 80053; 81003; 81025; 83036; 83605; 85025; 87086; 96374; 99284; A9270; J1885

== ENCOUNTER 2020-03-19 13:41 | Inpatient (IN) | payer MEDICAID ==
[2020-03-19] MEDS ORDERED: ceFAZolin 2 GM in Premix Bag 1 BAG IV ONE (15:18)
[2020-03-19] MEDS ORDERED: Sodium Chloride 0.9% 10 ML SDV IV PRN (15:18)
[2020-03-19] MEDS ORDERED: Sodium Chloride 0.9% 10 ML Syringe FLUSH PRN (15:18)
[2020-03-19] MEDS ORDERED: Citric Acid/Sodium Citrate Solution 30 ML Cup PO ONE (15:18)
[2020-03-19] MEDS ORDERED: Sodium Chloride 0.9% 2.5 ML Syringe FLUSH PRN (15:18)
[2020-03-19] MEDS ORDERED: Oxytocin/0.9 % Sodium Chloride 30 UNIT/500 ML BAG IV SCH (15:30)
[2020-03-19] MEDS ORDERED: Dextrose 5%-Lactated Ringers 1,000 ML IV SCH (15:30)
[2020-03-19] MEDS: Lactated Ringers 1,000 ML IV SCH ×2 (15:45→17:15)
[2020-03-19] MEDS ORDERED: Ondansetron 4 MG/2 ML SDV ONE (15:52)
[2020-03-19] MEDS ORDERED: Morphine PF 10 MG/10 ML SDV ONE (16:00)
[2020-03-19] MEDS ORDERED: Phenylephrine 1% 10 MG/ML SDV ONE (16:04)
[2020-03-19] MEDS ORDERED: ceFAZolin 1 GM Vial ONE (16:20)
[2020-03-19] MEDS ORDERED: Sodium Chloride 0.9% 20 ML ONE (16:20)
--- NOTE | 2020-03-19 16:39 | PCM.PREANE ---
Preanesthetic Assessment - Anesthesia/Transfusion/Family Hx Anesthesia History: Prior Anesthesia Without Reaction Family History of Anesthesia Reaction: No Transfusion History: No Prior Transfusion(s) - Review of Systems General: No Symptoms Pulmonary: No Symptoms Cardiovascular: No Symptoms Gastrointestinal: No Symptoms Neurological: No Symptoms Other: Reports: None - Physical Assessment NPO Status Date: 03/18/20 Height: 5 ft 2 in Weight: 67.132 kg ASA Class: 3 Mental Status: Alert & Oriented x3 Airway Class: Mallampati = 2 Dentition: Reports: Normal Dentition ROM/Head Extension: Full Lungs: Clear to Auscultation, Normal Respiratory Effort Cardiovascular: Regular Rate, Regular Rhythm - Lab Values: Laboratory Last Values WBC 10.27 K/uL (4.0-11.0) 03/19/20 15:15 RBC 4.40 M/uL (4.30-5.90) 03/19/20 15:15 Hgb 13.1 g/dL (12.0-16.0) 03/19/20 15:15 Hct 38.2 % (36.0-46.0) 03/19/20 15:15 MCV 86.8 fL (80.0-98.0) 03/19/20 15:15 MCH 29.8 pg (27.0-32.0) 03/19/20 15:15 MCHC 34.3 g/dL (31.0-37.0) 03/19/20 15:15 RDW Std Deviation 40.3 fl (28.0-62.0) 03/19/20 15:15 RDW Coeff of Amira 13 % (11.0-15.0) 03/19/20 15:15 Plt Count 244 K/uL (150-400) 03/19/20 15:15 MPV 10.30 fL (7.40-12.00) 03/19/20 15:15 Nucleated RBC % 0.0 /100WBC 03/19/20 15:15 Nucleated RBCs # 0 K/uL 03/19/20 15:15 Urine Color YELLOW 03/19/20 14:00 Urine Appearance CLEAR 03/19/20 14:00 Urine pH 7.5 (5.0-8.0) 03/19/20 14:00 Ur Specific [place] 1.020 (1.001-1.035) 03/19/20 14:00 Urine Protein NEGATIVE mg/dL (NEGATIVE) 03/19/20 14:00 Urine Glucose (UA) NEGATIVE mg/dL (NEGATIVE) 03/19/20 14:00 Urine Ketones NEGATIVE mg/dL (NEGATIVE) 03/19/20 14:00 Urine Occult Blood NEGATIVE (NEGATIVE) 03/19/20 14:00 Urine Nitrite NEGATIVE (NEGATIVE) 03/19/20 14:00 Urine Bilirubin NEGATIVE (NEGATIVE) 03/19/20 14:00 Urine Urobilinogen 0.2 EU/dL (<2.0) 03/19/20 14:00 Ur Leukocyte Esterase NEGATIVE (NEGATIVE) 03/19/20 14:00 Membrane Rupture POSITIVE 03/19/20 14:00 Blood Type B POSITIVE 03/19/20 15:15 Antibody Screen NEGATIVE 03/19/20 15:15 - Allergies Allergies/Adverse Reactions: Allergies Allergy/AdvReac Type Severity Reaction Status Date / Time No Known Allergies Allergy Verified 03/12/20 09:29 - Blood Blood Available: Yes - Anesthesia Plan Pre-Op Medication Ordered: Other (D5 for serum glucose of 55) - Acknowledgements Anesthesia Type Planned: Spinal Pt an Appropriate Candidate for the Planned Anesthesia: Yes Alternatives and Risks of Anesthesia Discussed w Pt/Guardian: Yes Pt/Guardian Understands and Agrees with Anesthesia Plan: Yes Additional Comments: PMH: repeat c/section, IUGR, poor diabetic control, 36 week, DM1 with insulin pump now off, BMI=27, NKDA, NPO -noon, platelets-OK, COVID test pending, now verbally reported as neg, no printed results back yet PLAN: spinal with duramorph, will delay start of C/s until results of COVID magaly ting is back PreAnesthesia Questionnaire HEENT History: Reports: None Cardiovascular History: Reports: None Respiratory History: Reports: None Gastrointestinal History: Reports: GERD Genitourinary History: Reports: Other (See Below) Other Genitourinary History: finished antibiotics today 03/12/20 for UTI [employer] History: Reports: , Spontaneous Musculoskeletal History: Reports: None Neurological History: Reports: Concussion Psychiatric History: Reports: None Endocrine/Metabolic History: Reports: Diabetes, Type I Hematologic History: Reports: None Immunologic History: Reports: None Oncologic (Cancer) History: Reports: None Dermatologic History: Reports: Eczema - Infectious Disease History Infectious Disease History: Reports: Other (See Below) Other Infectious Disease History: HSV1 - Past Surgical History Head Surgeries/Procedures: Reports: None HEENT Surgical History: Reports: None Cardiovascular Surgical History: Reports: None Respiratory Surgical History: Reports: None GI Surgical History: Reports: None Female Surgical History: Reports: Section Endocrine Surgical History: Reports: None Neurological Surgical History: Reports: None Musculoskeletal Surgical History: Reports: Other (See Below) Other Musculoskeletal Surgeries/Procedures:: surgical repair of fx left pinky finger Oncologic Surgical History: Reports: None Dermatological Surgical History: Reports: Other (See Below) - SUBSTANCE USE Smoking Status *Q: Never Smoker Tobacco Use Within Last Twelve Months: No Second Hand Smoke Exposure: No Recreational Drug Use History: No - HOME MEDS Home Medications: Home Meds Insulin Lispro [Humalog] 1 injection .ROUTE ASDIRECTED 05/23/19 [History] valACYclovir [Valtrex] 500 mg PO DAILY PRN 05/23/19 [History] Aspirin [Adult Aspirin Regimen] 81 mg PO DAILY 03/12/20 [History] Omeprazole 1 tab PO DAILY 03/12/20 [History] Pnv No.95/Ferrous Fum/Folic AC [ Vitamin Tablet] 1 tab PO DAILY 03/12/20 [History] - CURRENT (IN HOUSE) MEDS Current Meds: Current Medications Dextrose/Lactated Ringer's (Dextrose 5%-Lactated Ringers) 1,000 mls @ 500 mls/hr IV BOLUS EL Oxytocin/Sodium Chloride (Oxytocin 30 Unit/500 Ml-Ns) 30 unit in 500 mls @ 250 mls/hr IV TITRATE EL Sodium Chloride (Saline Flush) 10 ml FLUSH ASDIRECTED PRN PRN Reason: Keep Vein Open Sodium Chloride (Saline Flush) 2.5 ml FLUSH ASDIRECTED PRN PRN Reason: Keep Vein Open Sodium Chloride (Normal Saline) 10 ml IV ASDIRECTED PRN PRN Reason: IV Use Discontinued Medications Cefazolin Sodium (Ancef) Confirm Administered Dose 2 gm .ROUTE .STK-MED ONE Stop: 03/19/20 16:21 Citric Acid/Sodium Citrate (Bicitra Solution) 30 ml PO ONETIME ONE Stop: 03/19/20 15:19 Cefazolin Sodium/Dextrose 2 gm (/ Premix) 50 mls @ 100 mls/hr IV ONETIME ONE Stop: 03/19/20 15:47 Sodium Chloride (Normal Saline) Confirm Administered Dose 20 mls @ as directed .ROUTE .STK-MED ONE Stop: 03/19/20 16:21 Morphine Sulfate (Duramorph Pf) Confirm Administered Dose 10 mg .ROUTE .STK-MED ONE Stop: 03/19/20 16:01 Ondansetron HCl (Zofran) Confirm Administered Dose 4 mg .ROUTE .STK-MED ONE Stop: 03/19/20 15:53 Phenylephrine HCl (Doyle-Synephrine) Confirm Administered Dose 10 mg .ROUTE .STK- MED ONE Stop: 03/19/20 16:05
[2020-03-19] MEDS ORDERED: fentaNYL 100 MCG/2 ML SDV IVPUSH PRN (16:41)
[2020-03-19] MEDS ORDERED: Nalbuphine 10 MG/1 ML Vial IVPUSH PRN (16:41)
[2020-03-19] MEDS ORDERED: Acetaminophen/oxyCODONE 325-5 MG Tab PO PRN (16:41)
--- NOTE | 2020-03-19 19:20 | PCM.OPNOTE ---
<Sola Mayo - Last Filed: 03/19/20 19:29> - General Post-Op/Procedure Note Date of Surgery/Procedure: 03/19/20 Operative Procedure(s): Repeat low transverse Caesarean section Pre Op Diagnosis: Anesthesia Technique: Spinal Primary Surgeon: Federico Pearce Anesthesia Provider: Moreno Piña Reason Hearing Aid Consultant Was Necessary: Hearing Aid Consultant Sola Mayo MSVI Pathology: Intact placenta with membranes Fluid Replacement, Intraop: 1,500 Output, Urine Amount: 150 EBL in mLs: 900 Complications: None Condition: Good Free Text/Narrative:: Intake & Output 03/19/20 03/19/20 03/19/20 06:59 14:59 22:59 Output Total 150 Balance -150 Live male born at 1804 weighing 2440g, APGARS 5 and 8 at 1 and 5 minutes respectively <Federico Pearce - Last Filed: 03/19/20 19:41> - General Post-Op/Procedure Note Pre Op Diagnosis: 24yo @ 37w0d for Repeat . Type 1 DM. GBS positive. PROM Post-Op Diagnosis: same Free Text/Narrative:: Intake & Output 03/19/20 03/19/20 03/19/20 06:59 14:59 22:59 Intake Total 1500 Output Total 300 Balance 1200
[2020-03-19] MEDS ORDERED: Tranexamic Acid 1,000 MG in Sodium Chloride 0.9% 100 ML IV PRN (19:41)
[2020-03-19] MEDS ORDERED: Lanolin 100% Cream 7 GM Tube TOP PRN (19:41)
[2020-03-19] MEDS ORDERED: Oxytocin 10 Units/1 ML SDV IM PRN (19:41)
[2020-03-19] MEDS ORDERED: Misoprostol 200 MCG Tab RECTAL PRN (19:41)
[2020-03-19] MEDS ORDERED: Bisacodyl 10 MG Supp RECTAL PRN (19:41)
[2020-03-19] MEDS ORDERED: Methylergonovine 0.2 MG/1 ML Amp IM PRN (19:41)
[2020-03-19] MEDS ORDERED: Ondansetron 4 MG/2 ML SDV IVPUSH PRN (19:41)
[2020-03-19] MEDS ORDERED: Oxytocin/Lactated Ringers 30 UNIT/500 ML BAG IV SCH (19:45)
[2020-03-19] MEDS ORDERED: Lactated Ringers 1,000 ML IV SCH (19:45)
--- NOTE | 2020-03-19 19:53 | PCM.POSTAN ---
POST ANESTHESIA ASSESSMENT - MENTAL STATUS Mental Status: Alert - RESPIRATORY Respiratory Status: Respiratory Rate WNL - CARDIOVASCULAR CV Status: Pulse Rate WNL - GASTROINTESTINAL GI Status: No Symptoms - POST OP HYDRATION Hydration Status: Adequate & Stable
[2020-03-19] MEDS: diphenhydrAMINE 50 MG/ML SDV IVPUSH PRN (22:15)
[2020-03-19] MEDS ORDERED: Acetaminophen/HYDROcodone 325-5 MG Tab PO PRN (23:20)
[2020-03-20] MEDS: Lactated Ringers 1,000 ML IV SCH (00:10)
[2020-03-20] MEDS: Ketorolac 30 MG/ML SDV IVPUSH SCH ×4 (01:10→18:48)
--- NOTE | 2020-03-20 06:45 | PCM.PNPP ---
<Sola Mayo - Last Filed: 03/20/20 06:39> - General Info Date of Service: 03/20/20 Admission Dx/Problem (Free Text): Repeat low transverse c section with ROM Functional Status: Reports: Pain Controlled (Having some pain, waiting for next dose of Tylenol at 0700) - Review of Systems General: Reports: No Symptoms (Not yet passing flatus, has not yet ambulated) HEENT: Reports: No Symptoms Pulmonary: Reports: No Symptoms Cardiovascular: Reports: No Symptoms Gastrointestinal: Reports: No Symptoms Genitourinary: Reports: No Symptoms Musculoskeletal: Reports: No Symptoms Skin: Reports: No Symptoms Neurological: Reports: No Symptoms Psychiatric: Reports: No Symptoms - General Info Date of Service: 03/20/20 - Patient Data Vital Signs - Most Recent: Last Vital Signs Temp 97.8 F 03/20/20 05:00 Pulse 87 03/20/20 06:00 Resp 14 03/20/20 06:00 BP 106/62 03/20/20 05:00 Pulse Ox 98 03/20/20 06:00 Weight - Most Recent: 67.132 kg I&O - Last 24 Hours: Intake & Output 03/19/20 03/19/20 03/20/20 14:59 22:59 06:59 Intake Total 1500 720 Output Total 300 750 Balance 1200 -30 Lab Results - Last 24 Hours: Laboratory Results - last 24 hr 03/19/20 03/19/20 03/19/20 Range/Units 14:00 14:00 15:15 WBC 10.27 (4.0-11.0) K/uL RBC 4.40 (4.30-5.90) M/uL Hgb 13.1 (12.0-16.0) g/dL Hct 38.2 (36.0-46.0) % MCV 86.8 (80.0-98.0) fL MCH 29.8 (27.0-32.0) pg MCHC 34.3 (31.0-37.0) g/dL RDW Std Deviation 40.3 (28.0-62.0) fl RDW Coeff of Amira 13 (11.0-15.0) % Plt Count 244 (150-400) K/uL MPV 10.30 (7.40-12.00) fL Nucleated RBC % 0.0 /100WBC Nucleated RBCs # 0 K/uL Urine Color YELLOW Urine Appearance CLEAR Urine pH 7.5 (5.0-8.0) Ur Specific [place] 1.020 (1.001-1.035) Urine Protein NEGATIVE (NEGATIVE) mg/dL Urine Glucose (UA) NEGATIVE (NEGATIVE) mg/dL Urine Ketones NEGATIVE (NEGATIVE) mg/dL Urine Occult Blood NEGATIVE (NEGATIVE) Urine Nitrite NEGATIVE (NEGATIVE) Urine Bilirubin NEGATIVE (NEGATIVE) Urine Urobilinogen 0.2 (<2.0) EU/dL Ur Leukocyte Esterase NEGATIVE (NEGATIVE) Membrane Rupture POSITIVE SARS Virus RNA (PCR) (NEGATIVE) Blood Type Antibody Screen 03/19/20 03/19/20 03/20/20 Range/Units 15:15 15:34 05:58 WBC (4.0-11.0) K/uL RBC (4.30-5.90) M/uL Hgb 10.2 L (12.0-16.0) g/dL Hct 30.6 L (36.0-46.0) % MCV (80.0-98.0) fL MCH (27.0-32.0) pg MCHC (31.0-37.0) g/dL RDW Std Deviation (28.0-62.0) fl RDW Coeff of Amira (11.0-15.0) % Plt Count (150-400) K/uL MPV (7.40-12.00) fL Nucleated RBC % /100WBC Nucleated RBCs # K/uL Urine Color Urine Appearance Urine pH (5.0-8.0) Ur Specific [place] (1.001-1.035) Urine Protein (NEGATIVE) mg/dL Urine Glucose (UA) (NEGATIVE) mg/dL Urine Ketones (NEGATIVE) mg/dL Urine Occult Blood (NEGATIVE) Urine Nitrite (NEGATIVE) Urine Bilirubin (NEGATIVE) Urine Urobilinogen (<2.0) EU/dL Ur Leukocyte Esterase (NEGATIVE) Membrane Rupture SARS Virus RNA (PCR) NEGATIVE (NEGATIVE) Blood Type B POSITIVE Antibody Screen NEGATIVE Med Orders - Current: Current Medications Hydrocodone Bitart/Acetaminophen ([place] 325-5 Mg) 2 tab PO Q4H PRN PRN Reason: Pain (moderate 4-6) Bisacodyl (Dulcolax) 10 mg RECTAL ONETIME PRN PRN Reason: Constipation Diphenhydramine HCl (Benadryl) 25 mg IVPUSH Q6H PRN PRN Reason: Itching or Nausea Last Admin: 03/19/20 22:15 Dose: 25 mg Documented by: Docusate Sodium (Colace) 100 mg PO BID [facility] Emollient Ointment (Lansinoh Hpa) 0 gm TOP ASDIRECTED PRN PRN Reason: Sore Nipples Fentanyl (Sublimaze) 50 mcg IVPUSH Q5M PRN PRN Reason: Pain (severe 7-10) Stop: 03/20/20 16:41 Dextrose/Lactated Ringer's (Dextrose 5%-Lactated Ringers) 1,000 mls @ 500 mls/hr IV BOLUS [facility] Last Admin: 03/19/20 15:05 Dose: 500 mls/hr Documented by: Oxytocin/Sodium Chloride (Oxytocin 30 Unit/500 Ml-Ns) 30 unit in 500 mls @ 250 mls/hr IV TITRATE [facility] Lactated Ringer's (Ringers, Lactated) 1,000 mls @ 125 mls/hr IV ASDIRECTED [facility] Last Admin: 03/20/20 00:10 Dose: 125 mls/hr Documented by: Lactated Ringer's (Ringers, Lactated) 1,000 mls @ 125 mls/hr IV ASDIRECTED [facility] Oxytocin/Lactated Ringer's (Pitocin In Lr 30 Units/500 Ml) 30 unit in 500 mls @ 125 mls/hr IV TITRATE [facility]; Protocol Tranexamic Acid 1,000 mg/ (Sodium Chloride) 110 mls @ 660 mls/hr IV ONETIME PRN PRN Reason: Bleeding Ibuprofen (Motrin) 800 mg PO Q8H PRN PRN Reason: mild pain or fever Ketorolac Tromethamine (Toradol) 30 mg IVPUSH Q6H [facility] Stop: 03/20/20 19:01 Last Admin: 03/20/20 01:10 Dose: 30 mg Documented by: Methylergonovine Maleate (Methergine) 0.2 mg IM ONETIME PRN PRN Reason: Excessive Vaginal Bleeding Misoprostol (Cytotec) 1,000 mcg RECTAL ONETIME PRN PRN Reason: excessive bleeding Nalbuphine HCl (Nubain) 2.5 mg IVPUSH Q3H PRN PRN Reason: Pruritis Stop: 03/20/20 16:42 Ondansetron HCl (Zofran) 4 mg IVPUSH Q4H PRN PRN Reason: Nausea/Vomiting Oxycodone/Acetaminophen (Percocet 325-5 Mg) 1 tab PO ONETIME PRN PRN Reason: Pain (moderate 4-6) Oxycodone/Acetaminophen (Percocet 325-5 Mg) 1 tab PO Q4H PRN PRN Reason: Pain (moderate 4-6) Oxycodone/Acetaminophen (Percocet 325-5 Mg) 2 tab PO Q4H PRN PRN Reason: Pain (moderate 4-6) Oxytocin (Pitocin) 10 unit IM ASDIRECTED PRN PRN Reason: Excessive Vaginal Bleeding Sodium Chloride (Saline Flush) 10 ml FLUSH ASDIRECTED PRN PRN Reason: Keep Vein Open Sodium Chloride (Saline Flush) 2.5 ml FLUSH ASDIRECTED PRN PRN Reason: Keep Vein Open Sodium Chloride (Normal Saline) 10 ml IV ASDIRECTED PRN PRN Reason: IV Use Discontinued Medications Cefazolin Sodium (Ancef) Confirm Administered Dose 2 gm .ROUTE .STK-MED ONE Stop: 03/19/20 16:21 Citric Acid/Sodium Citrate (Bicitra Solution) 30 ml PO ONETIME ONE Stop: 03/19/20 15:19 Last Admin: 03/19/20 17:15 Dose: 30 ml Documented by: Cefazolin Sodium/Dextrose 2 gm (/ Premix) 50 mls @ 100 mls/hr IV ONETIME ONE Stop: 03/19/20 15:47 Sodium Chloride (Normal Saline) Confirm Administered Dose 20 mls @ as directed .ROUTE .STK-MED ONE Stop: 03/19/20 16:21 Morphine Sulfate (Duramorph Pf) Confirm Administered Dose 10 mg .ROUTE .STK-MED ONE Stop: 03/19/20 16:01 Ondansetron HCl (Zofran) Confirm Administered Dose 4 mg .ROUTE .STK-MED ONE Stop: 03/19/20 15:53 Phenylephrine HCl (Doyle-Synephrine) Confirm Administered Dose 10 mg .ROUTE .STK- MED ONE Stop: 03/19/20 16:05 - Interaction Disposition, : [place] in Room with Family Interaction: Holding Infant Feeding: Attempted ; Nursed Fair/Poor (Having trouble latching) Support Person: Significant Other - Recovery Exam Fundal Tone: Firm Fundal Level: 1 Fingerbreadths Below Umbilicus Fundal Placement: Midline Lochia Amount: Scant Lochia Color: Rubra/Red Perineum Description: Intact, Minimal Bruising/Swelling Bladder Status: Indwelling Catheter in Place - Exam General: Alert, Oriented HEENT: Pupils Equal Neck: Supple Lungs: Clear to Auscultation, Normal Respiratory Effort Cardiovascular: Regular Rate, Regular Rhythm GI/Abdominal Exam: Normal Bowel Sounds, Soft, Non-Tender, No Organomegaly, No Distention, No Abnormal Bruit, No Mass, Pelvis Stable Extremities: Normal Inspection, Normal Range of Motion, Non-Tender, No Pedal Edema, Normal Capillary Refill Skin: Warm, Dry, Intact Wound/Incisions: Healing Well Neurological: No New Focal Deficit Psy/Mental Status: Alert, Normal Affect, Normal Mood - Problem List & Annotations (1) delivery delivered SNOMED Code(s): 585596605 Code(s): O82 - ENCOUNTER FOR DELIVERY WITHOUT INDICATION Status: Acute Current Visit: No - Problem List Review Problem List Initiated/Reviewed/Updated: Yes - Assessment Assessment:: S/p repeat low-transverse c/s with ROM on 03/19 POD 1 afebrile - no flatus yet, not ambulating, crane clear yellow urine - Plan Plan:: d/c crane up and out of bed qid strict I/O advance diet as tolerated incentive spirometry 10x hr Scheduled pain meds as needed <Federico Pearce - Last Filed: 03/20/20 15:23> - General Info Functional Status: Reports: Tolerating Diet, Ambulating - Patient Data Vital Signs - Most Recent: Last Vital Signs Temp 36.9 C 03/20/20 12:00 Pulse 100 03/20/20 12:00 Resp 16 03/20/20 12:00 BP 116/58 L 03/20/20 12:00 Pulse Ox 99 03/20/20 12:00 I&O - Last 24 Hours: Intake & Output 03/20/20 03/20/20 03/20/20 06:59 14:59 22:59 Intake Total 720 Output Total 750 Balance -30 Lab Results - Last 24 Hours: Laboratory Results - last 24 hr 03/19/20 03/19/20 03/19/20 Range/Units 15:15 15:15 15:34 WBC 10.27 (4.0-11.0) K/uL RBC 4.40 (4.30-5.90) M/uL Hgb 13.1 (12.0-16.0) g/dL Hct 38.2 (36.0-46.0) % MCV 86.8 (80.0-98.0) fL MCH 29.8 (27.0-32.0) pg MCHC 34.3 (31.0-37.0) g/dL RDW Std Deviation 40.3 (28.0-62.0) fl RDW Coeff of Amira 13 (11.0-15.0) % Plt Count 244 (150-400) K/uL MPV 10.30 (7.40-12.00) fL Nucleated RBC % 0.0 /100WBC Nucleated RBCs # 0 K/uL SARS Virus RNA (PCR) NEGATIVE (NEGATIVE) Blood Type B POSITIVE Antibody Screen NEGATIVE 03/20/20 Range/Units 05:58 WBC (4.0-11.0) K/uL RBC (4.30-5.90) M/uL Hgb 10.2 L (12.0-16.0) g/dL Hct 30.6 L (36.0-46.0) % MCV (80.0-98.0) fL MCH (27.0-32.0) pg MCHC (31.0-37.0) g/dL RDW Std Deviation (28.0-62.0) fl RDW Coeff of Amira (11.0-15.0) % Plt Count (150-400) K/uL MPV (7.40-12.00) fL Nucleated RBC % /100WBC Nucleated RBCs # K/uL SARS Virus RNA (PCR) (NEGATIVE) Blood Type Antibody Screen Med Orders - Current: Current Medications Hydrocodone Bitart/Acetaminophen ([place] 325-5 Mg) 2 tab PO Q4H PRN PRN Reason: Pain (moderate 4-6) Bisacodyl (Dulcolax) 10 mg RECTAL ONETIME PRN PRN Reason: Constipation Diphenhydramine HCl (Benadryl) 25 mg IVPUSH Q6H PRN PRN Reason: Itching or Nausea Last Admin: 03/20/20 11:47 Dose: 25 mg Documented by: Docusate Sodium (Colace) 100 mg PO BID [facility] Last Admin: 03/20/20 09:21 Dose: 100 mg Documented by: Emollient Ointment (Lansinoh Hpa) 0 gm TOP ASDIRECTED PRN PRN Reason: Sore Nipples Fentanyl (Sublimaze) 50 mcg IVPUSH Q5M PRN PRN Reason: Pain (severe 7-10) Stop: 03/20/20 16:41 Dextrose/Lactated Ringer's (Dextrose 5%-Lactated Ringers) 1,000 mls @ 500 mls/hr IV BOLUS [facility] Last Admin: 03/19/20 15:05 Dose: 500 mls/hr Documented by: Oxytocin/Sodium Chloride (Oxytocin 30 Unit/500 Ml-Ns) 30 unit in 500 mls @ 250 mls/hr IV TITRATE [facility] Lactated Ringer's (Ringers, Lactated) 1,000 mls @ 125 mls/hr IV ASDIRECTED [facility] Last Admin: 03/20/20 00:10 Dose: 125 mls/hr Documented by: Lactated Ringer's (Ringers, Lactated) 1,000 mls @ 125 mls/hr IV ASDIRECTED [facility] Oxytocin/Lactated Ringer's (Pitocin In Lr 30 Units/500 Ml) 30 unit in 500 mls @ 125 mls/hr IV TITRATE [facility]; Protocol Tranexamic Acid 1,000 mg/ (Sodium Chloride) 110 mls @ 660 mls/hr IV ONETIME PRN PRN Reason: Bleeding Ibuprofen (Motrin) 800 mg PO Q8H PRN PRN Reason: mild pain or fever Ketorolac Tromethamine (Toradol) 30 mg IVPUSH Q6H [facility] Stop: 03/20/20 19:01 Last Admin: 03/20/20 13:10 Dose: 30 mg Documented by: Methylergonovine Maleate (Methergine) 0.2 mg IM ONETIME PRN PRN Reason: Excessive Vaginal Bleeding Misoprostol (Cytotec) 1,000 mcg RECTAL ONETIME PRN PRN Reason: excessive bleeding Nalbuphine HCl (Nubain) 2.5 mg IVPUSH Q3H PRN PRN Reason: Pruritis Stop: 03/20/20 16:42 Ondansetron HCl (Zofran) 4 mg IVPUSH Q4H PRN PRN Reason: Nausea/Vomiting Oxycodone/Acetaminophen (Percocet 325-5 Mg) 1 tab PO ONETIME PRN PRN Reason: Pain (moderate 4-6) Oxycodone/Acetaminophen (Percocet 325-5 Mg) 1 tab PO Q4H PRN PRN Reason: Pain (moderate 4-6) Oxycodone/Acetaminophen (Percocet 325-5 Mg) 2 tab PO Q4H PRN PRN Reason: Pain (moderate 4-6) Oxytocin (Pitocin) 10 unit IM ASDIRECTED PRN PRN Reason: Excessive Vaginal Bleeding Sodium Chloride (Saline Flush) 10 ml FLUSH ASDIRECTED PRN PRN Reason: Keep Vein Open Sodium Chloride (Saline Flush) 2.5 ml FLUSH ASDIRECTED PRN PRN Reason: Keep Vein Open Sodium Chloride (Normal Saline) 10 ml IV ASDIRECTED PRN PRN Reason: IV Use Discontinued Medications Cefazolin Sodium (Ancef) Confirm Administered Dose 2 gm .ROUTE .STK-MED ONE Stop: 03/19/20 16:21 Citric Acid/Sodium Citrate (Bicitra Solution) 30 ml PO ONETIME ONE Stop: 03/19/20 15:19 Last Admin: 03/19/20 17:15 Dose: 30 ml Documented by: Cefazolin Sodium/Dextrose 2 gm (/ Premix) 50 mls @ 100 mls/hr IV ONETIME ONE Stop: 03/19/20 15:47 Sodium Chloride (Normal Saline) Confirm Administered Dose 20 mls @ as directed .ROUTE .STK-MED ONE Stop: 03/19/20 16:21 Morphine Sulfate (Duramorph Pf) Confirm Administered Dose 10 mg .ROUTE .STK-MED ONE Stop: 03/19/20 16:01 Ondansetron HCl (Zofran) Confirm Administered Dose 4 mg .ROUTE .STK-MED ONE Stop: 03/19/20 15:53 Phenylephrine HCl (Doyle-Synephrine) Confirm Administered Dose 10 mg .ROUTE .STK- MED ONE Stop: 03/19/20 16:05 - Problem List & Annotations (1) delivery delivered SNOMED Code(s): 838775168 Code(s): O82 - ENCOUNTER FOR DELIVERY WITHOUT INDICATION Status: Acute Current Visit: No - My Orders Last 24 Hours: My Active Orders 03/19/20 15:00 Lactated Ringers [Ringers, Lactated] 1,000 ml IV ASDIRECTED 03/19/20 15:15 RPR (SYPHILIS SERO) W/ RFLX [REF] Routine 03/19/20 15:18 Patient Status [ADT] Routine Up ad Vania [RC] ASDIRECTED Vital Signs [RC] PER UNIT ROUTINE Sodium Chloride 0.9% [Normal Saline] 10 ml IV ASDIRECTED PRN Sodium Chloride 0.9% [Saline Flush] 10 ml FLUSH ASDIRECTED PRN Sodium Chloride 0.9% [Saline Flush] 2.5 ml FLUSH ASDIRECTED PRN Peripheral IV Insertion Adult [OM.PC] Routine Schedule Procedure [COMM] Per Unit Routine 03/19/20 15:21 Notify Provider Vital Signs [RC] PRN 03/19/20 15:30 Dextrose 5%-Lactated Ringers 1,000 ml IV BOLUS Oxytocin/0.9 % Sodium Chloride [Oxytocin 30 Unit/500 ML-NS] 30 unit in 500 ml IV TITRATE 03/19/20 19:41 Notify Provider Intake and Out [RC] ASDIRECTED Notify Provider Vital Signs [RC] ASDIRECTED Acetaminophen/oxyCODONE [Percocet 325-5 MG] 1 tab PO Q4H PRN Acetaminophen/oxyCODONE [Percocet 325-5 MG] 2 tab PO Q4H PRN Lanolin [Lansinoh HPA] See Dose Instructions TOP ASDIRECTED PRN Methylergonovine [Methergine] 0.2 mg IM ONETIME PRN Ondansetron [Zofran] 4 mg IVPUSH Q4H PRN Oxytocin [Pitocin] 10 unit IM ASDIRECTED PRN Tranexamic Acid [Cyklokapron] 1,000 mg Sodium Chloride 0.9% [Normal Saline] 100 ml IV ONETIME bisacodyL [Dulcolax] 10 mg RECTAL ONETIME PRN diphenhydrAMINE [Benadryl] 25 mg IVPUSH Q6H PRN miSOPROStoL [Cytotec] 1,000 mcg RECTAL ONETIME PRN Resuscitation Status Routine 03/19/20 19:42 Patient Status [ADT] Routine Ambulate [RC] PER UNIT ROUTINE Antiembolic Devices [RC] PER UNIT ROUTINE Communication Order [RC] PER UNIT ROUTINE Communication Order [RC] PER UNIT ROUTINE Communication Order [RC] Per Unit Routine May Shower [RC] ASDIRECTED RT Incentive Spirometry [RC] Q2HWA Vital Signs [RC] PER UNIT ROUTINE Assess Lochia [WOMSER] Per Unit Routine Assess Uterine Involution [WOMSER] Per Unit Routine Breast Pump [WOMSER] Per Unit Routine Peripheral IV Discontinue [OM.PC] Routine Sequential Compression Device [OM.PC] Per Unit Routine 03/19/20 19:45 Lactated Ringers [Ringers, Lactated] 1,000 ml IV ASDIRECTED Oxytocin/Lactated Ringers [Pitocin in LR 30 Units/500 ML] 30 unit in 500 ml IV TITRATE 03/19/20 19:52 Communication Order [RC] ROUTINE 03/19/20 21:00 Docusate Sodium [Colace] 100 mg PO BID 03/20/20 01:00 Ketorolac [Toradol] 30 mg IVPUSH Q6H 03/21/20 01:00 Ibuprofen [Motrin] 800 mg PO Q8H PRN - Assessment Assessment:: 24yo s/p repeat , POD1 , crane out yet to void , , normal lochia FS good control , 1 hypo episode - Plan Plan:: Pain control as needed Insulin now at 21 basal Follow void Routine
[2020-03-20] MEDS: Docusate Sodium 100 MG Cap PO SCH ×3 (08:34→20:35)
--- NOTE | 2020-03-20 09:26 | PCM48HPAN ---
Post Anesthesia Note - EVALUATION WITHIN 48HRS OF ANESTHETIC Vital Signs in Normal Range: Yes Patient Participated in Evaluation: Yes Respiratory Function Stable: Yes Airway Patent: Yes Cardiovascular Function Stable: Yes Hydration Status Stable: Yes Pain Control Satisfactory: Yes Nausea and Vomiting Control Satisfactory: Yes Mental Status Recovered: Yes Vital Signs: Last Vital Signs Temp 97.8 F 03/20/20 05:00 Pulse 83 03/20/20 08:00 Resp 16 03/20/20 08:00 BP 106/62 03/20/20 05:00 Pulse Ox 96 03/20/20 08:00
[2020-03-20] MEDS: diphenhydrAMINE 50 MG/ML SDV IVPUSH PRN (11:47)
--- NOTE | 2020-03-20 13:37 | OR ---
SURGEON: LUMA ESPARZA DATE OF PROCEDURE: 03/19/2020 PREOPERATIVE DIAGNOSES: A 24-year-old, G3, P1-0-1-1, at 37 weeks 0 days, admitted for repeat section secondary to premature rupture of membranes, also type 1 diabetic, group B Streptococcus positive. POSTOPERATIVE DIAGNOSES: A 24-year-old, G3, P1-0-1-1, at 37 weeks 0 days, admitted for repeat section secondary to premature rupture of membranes, also type 1 diabetic, group B Streptococcus positive. PROCEDURE: Repeat lower segment section ESTIMATED BLOOD LOSS: 900. IV FLUIDS: 1500. URINE OUTPUT: 150. ANESTHESIA: Dr. Piña. NOTES AND FINDINGS: A live male delivered via vacuum at 1806. score was 5 and 8. Weight is 2440 g. There was a tight nuchal cord around the neck. BRIEF HISTORY ABOUT THE PATIENT: She is a 24-year-old, G3, P1-0-1-1, at 37 weeks 0 days, who came in complaining of rupture of membranes. She was GBS positive, and she was confirmed to be ruptured with AmniSure. As a result of rupture , she was counseled for repeat section, which she accepted.She received 2g Ancef. Her history was complicated with IUGR with an EFW at 5th percentile. However, she had normal Dopplers. She also during care had some issues of elevated hyperglycemia. AmniSure rupture was confirmed. She was counseled for a repeat section. She was explained the risks, benefits, and alternatives, and she desired to proceed. DESCRIPTION OF PROCEDURE: The patient was taken to the operating room where spinal anesthesia was performed without difficulty. She was prepared and draped in the dorsal supine position with a leftward tilt. A Pfannenstiel skin incision was made in the line of the previous incision and carried down to the fascia with the Bovie. The fascia was incised and extended laterally. There were very minimal adhesions in subcutaneous layer. There were no abdominal adhesions noted. The fascia was held by the Brooke superiorly and inferiorly and was from the rectus muscle. The abdomen was entered without difficulty with the exposure of the peritoneum and the lower uterine segment was exposed with the Gustavo retractor, which was placed without any difficulty. The lower uterine segment was viewed and the bladder flap was created in the lower uterine incision. The head was noted to be high. As a result, the vacuum was applied. There was one pop-off , but with fundal pressure the head was brought to the level of the incision with the second application of the vacuum and it was delivered without any difficulty. Then, the cord was clamped and cut. was handed over to the awaiting director of neurology. The placenta was delivered without difficulty. The incision was closed in two layers, first layer was with 0 Vicryl, second layer was with 2.0 Monocryl. Incision was inspected and noted to be hemostatic. The gutters were cleaned. The adnexa was inspected and noted to be normal. The Gustavo was removed. The incision was inspected again and was noted to be hemostatic. The peritoneum was closed and the fascia was closed with 0 Vicryl and the subcutaneous fat was closed with plain gut. The skin was closed with 3-0 Monocryl on a Juliano needle. All instrument and pad counts were correct x3. The patient was sent to Labor and Delivery room in stable condition. KIZZY LANGLEY /[id number] MTDD
[2020-03-20] MEDS: Acetaminophen/oxyCODONE 325-5 MG Tab PO PRN (20:36)
[2020-03-21] MEDS: Acetaminophen/oxyCODONE 325-5 MG Tab PO PRN ×6 (00:17→23:44)
[2020-03-21] MEDS: Ibuprofen 800 MG Tab PO PRN ×3 (02:06→22:21)
--- NOTE | 2020-03-21 07:28 | PCM.PNPP ---
<Sola Mayo - Last Filed: 03/21/20 07:23> - General Info Date of Service: 03/21/20 Subjective Update: Patient is having some pain today, she is recieving scheduled pain meds. Incision is sore, fundus mildly tender firm and two finger breadths below the umbilicus. She is afebrile. Up ambulating and urinating. She took a shower. Still some blood tinge and clots in the toilet when she urinates. Feeling the urge to have a bowel movement but it hurts her abdomen to push or pass gas. Functional Status: Reports: Pain Controlled (Scheduled percocet and motrin), Tolerating Diet, Ambulating, Urinating - Review of Systems General: Reports: No Symptoms Pulmonary: Reports: No Symptoms Cardiovascular: Reports: No Symptoms (trace edema in the ankles bilaterally) Gastrointestinal: Reports: Abdominal Pain. Denies: Nausea, Vomiting Genitourinary: Denies: Dysuria, Frequency Skin: Reports: No Symptoms Neurological: Reports: No Symptoms Psychiatric: Reports: No Symptoms - General Info Date of Service: 03/21/20 - Patient Data Vital Signs - Most Recent: Last Vital Signs Temp 98.2 F 03/20/20 16:19 Pulse 101 H 03/20/20 16:19 Resp 18 03/20/20 18:00 BP 128/74 03/20/20 16:41 Pulse Ox 99 03/20/20 18:00 Weight - Most Recent: 67.132 kg I&O - Last 24 Hours: Intake & Output 03/20/20 03/21/20 03/21/20 22:59 06:59 14:59 Output Total 850 Balance -850 Med Orders - Current: Current Medications Hydrocodone Bitart/Acetaminophen ([place] 325-5 Mg) 2 tab PO Q4H PRN PRN Reason: Pain (moderate 4-6) Bisacodyl (Dulcolax) 10 mg RECTAL ONETIME PRN PRN Reason: Constipation Diphenhydramine HCl (Benadryl) 25 mg IVPUSH Q6H PRN PRN Reason: Itching or Nausea Last Admin: 03/20/20 11:47 Dose: 25 mg Documented by: Docusate Sodium (Colace) 100 mg PO BID EL Last Admin: 03/20/20 20:35 Dose: 100 mg Documented by: Emollient Ointment (Lansinoh Hpa) 0 gm TOP ASDIRECTED PRN PRN Reason: Sore Nipples Dextrose/Lactated Ringer's (Dextrose 5%-Lactated Ringers) 1,000 mls @ 500 mls/hr IV BOLUS EL Last Admin: 03/19/20 15:05 Dose: 500 mls/hr Documented by: Oxytocin/Sodium Chloride (Oxytocin 30 Unit/500 Ml-Ns) 30 unit in 500 mls @ 250 mls/hr IV TITRATE EL Lactated Ringer's (Ringers, Lactated) 1,000 mls @ 125 mls/hr IV ASDIRECTED EL Last Admin: 03/20/20 00:10 Dose: 125 mls/hr Documented by: Lactated Ringer's (Ringers, Lactated) 1,000 mls @ 125 mls/hr IV ASDIRECTED EL Oxytocin/Lactated Ringer's (Pitocin In Lr 30 Units/500 Ml) 30 unit in 500 mls @ 125 mls/hr IV TITRATE EL; Protocol Tranexamic Acid 1,000 mg/ (Sodium Chloride) 110 mls @ 660 mls/hr IV ONETIME PRN PRN Reason: Bleeding Ibuprofen (Motrin) 800 mg PO Q8H PRN PRN Reason: mild pain or fever Last Admin: 03/21/20 02:06 Dose: 800 mg Documented by: Methylergonovine Maleate (Methergine) 0.2 mg IM ONETIME PRN PRN Reason: Excessive Vaginal Bleeding Misoprostol (Cytotec) 1,000 mcg RECTAL ONETIME PRN PRN Reason: excessive bleeding Ondansetron HCl (Zofran) 4 mg IVPUSH Q4H PRN PRN Reason: Nausea/Vomiting Oxycodone/Acetaminophen (Percocet 325-5 Mg) 1 tab PO ONETIME PRN PRN Reason: Pain (moderate 4-6) Oxycodone/Acetaminophen (Percocet 325-5 Mg) 1 tab PO Q4H PRN PRN Reason: Pain (moderate 4-6) Last Admin: 03/21/20 06:53 Dose: 1 tab Documented by: Oxycodone/Acetaminophen (Percocet 325-5 Mg) 2 tab PO Q4H PRN PRN Reason: Pain (moderate 4-6) Last Admin: 03/21/20 00:17 Dose: 2 tab Documented by: Oxytocin (Pitocin) 10 unit IM ASDIRECTED PRN PRN Reason: Excessive Vaginal Bleeding Sodium Chloride (Saline Flush) 10 ml FLUSH ASDIRECTED PRN PRN Reason: Keep Vein Open Sodium Chloride (Saline Flush) 2.5 ml FLUSH ASDIRECTED PRN PRN Reason: Keep Vein Open Sodium Chloride (Normal Saline) 10 ml IV ASDIRECTED PRN PRN Reason: IV Use Discontinued Medications Cefazolin Sodium (Ancef) Confirm Administered Dose 2 gm .ROUTE .STK-MED ONE Stop: 03/19/20 16:21 Citric Acid/Sodium Citrate (Bicitra Solution) 30 ml PO ONETIME ONE Stop: 03/19/20 15:19 Last Admin: 03/19/20 17:15 Dose: 30 ml Documented by: Fentanyl (Sublimaze) 50 mcg IVPUSH Q5M PRN PRN Reason: Pain (severe 7-10) Stop: 03/20/20 16:41 Cefazolin Sodium/Dextrose 2 gm (/ Premix) 50 mls @ 100 mls/hr IV ONETIME ONE Stop: 03/19/20 15:47 Sodium Chloride (Normal Saline) Confirm Administered Dose 20 mls @ as directed .ROUTE .STK-MED ONE Stop: 03/19/20 16:21 Ketorolac Tromethamine (Toradol) 30 mg IVPUSH Q6H EL Stop: 03/20/20 19:01 Last Admin: 03/20/20 18:48 Dose: 30 mg Documented by: Morphine Sulfate (Duramorph Pf) Confirm Administered Dose 10 mg .ROUTE .STK-MED ONE Stop: 03/19/20 16:01 Nalbuphine HCl (Nubain) 2.5 mg IVPUSH Q3H PRN PRN Reason: Pruritis Stop: 03/20/20 16:42 Ondansetron HCl (Zofran) Confirm Administered Dose 4 mg .ROUTE .STK-MED ONE Stop: 03/19/20 15:53 Phenylephrine HCl (Doyle-Synephrine) Confirm Administered Dose 10 mg .ROUTE .STK- MED ONE Stop: 03/19/20 16:05 - Interaction Disposition, : [place] in Room with Family Interaction: Holding Infant Feeding: Attempted ; Nursed Fair/Poor (Having trouble latching) Support Person: Significant Other - Recovery Exam Fundal Tone: Firm Fundal Level: At Umbilicus Fundal Placement: Midline Lochia Amount: Scant Lochia Color: Rubra/Red Perineum Description: Intact, Minimal Bruising/Swelling Bladder Status: Voiding - Exam General: Alert, Oriented Lungs: Clear to Auscultation, Normal Respiratory Effort Cardiovascular: Regular Rate, Regular Rhythm GI/Abdominal Exam: Soft, Tender (Incision clean and dry) Extremities: Pedal Edema (trace) Skin: Warm, Dry, Intact Wound/Incisions: Healing Well Neurological: No New Focal Deficit Psy/Mental Status: Alert, Normal Affect, Normal Mood - Problem List & Annotations (1) delivery delivered SNOMED Code(s): 907148796 Code(s): O82 - ENCOUNTER FOR DELIVERY WITHOUT INDICATION Status: Acute Current Visit: No - Problem List Review Problem List Initiated/Reviewed/Updated: Yes - Assessment Assessment:: 24yo s/p repeat , POD2 , crane out and voiding, no bowel movement yet, , normal lochia FS good control , 1 hypo episode - Plan Plan:: Pain control as needed Insulin now at 21 basal Voiding Routine Discharge home today Discharge instructions to be given at bedside Patient seen by Sola Mayo MSIV <Federcio Pearce - Last Filed: 03/21/20 10:15> - General Info Subjective Update: Patient seen at bedside , she has fair pain control. FS is good however had 1 episode of hypoglycemia this am Normal lochia , - Patient Data Vital Signs - Most Recent: Last Vital Signs Temp 36.7 C 03/21/20 08:00 Pulse 92 03/21/20 08:00 Resp 16 03/21/20 08:00 BP 118/70 03/21/20 08:00 Pulse Ox 100 03/21/20 08:00 I&O - Last 24 Hours: Intake & Output 03/20/20 03/21/20 03/21/20 22:59 06:59 14:59 Output Total 850 Balance -850 Med Orders - Current: Current Medications Hydrocodone Bitart/Acetaminophen ([place] 325-5 Mg) 2 tab PO Q4H PRN PRN Reason: Pain (moderate 4-6) Bisacodyl (Dulcolax) 10 mg RECTAL ONETIME PRN PRN Reason: Constipation Diphenhydramine HCl (Benadryl) 25 mg IVPUSH Q6H PRN PRN Reason: Itching or Nausea Last Admin: 03/20/20 11:47 Dose: 25 mg Documented by: Docusate Sodium (Colace) 100 mg PO BID EL Last Admin: 03/21/20 09:08 Dose: 100 mg Documented by: Emollient Ointment (Lansinoh Hpa) 0 gm TOP ASDIRECTED PRN PRN Reason: Sore Nipples Last Admin: 03/21/20 09:09 Dose: 1 packet Documented by: Dextrose/Lactated Ringer's (Dextrose 5%-Lactated Ringers) 1,000 mls @ 500 mls/hr IV BOLUS EL Last Admin: 03/19/20 15:05 Dose: 500 mls/hr Documented by: Oxytocin/Sodium Chloride (Oxytocin 30 Unit/500 Ml-Ns) 30 unit in 500 mls @ 250 mls/hr IV TITRATE EL Lactated Ringer's (Ringers, Lactated) 1,000 mls @ 125 mls/hr IV ASDIRECTED EL Last Admin: 03/20/20 00:10 Dose: 125 mls/hr Documented by: Lactated Ringer's (Ringers, Lactated) 1,000 mls @ 125 mls/hr IV ASDIRECTED [facility] Oxytocin/Lactated Ringer's (Pitocin In Lr 30 Units/500 Ml) 30 unit in 500 mls @ 125 mls/hr IV TITRATE [facility]; Protocol Tranexamic Acid 1,000 mg/ (Sodium Chloride) 110 mls @ 660 mls/hr IV ONETIME PRN PRN Reason: Bleeding Ibuprofen (Motrin) 800 mg PO Q8H PRN PRN Reason: mild pain or fever Last Admin: 03/21/20 09:08 Dose: 800 mg Documented by: Methylergonovine Maleate (Methergine) 0.2 mg IM ONETIME PRN PRN Reason: Excessive Vaginal Bleeding Misoprostol (Cytotec) 1,000 mcg RECTAL ONETIME PRN PRN Reason: excessive bleeding Ondansetron HCl (Zofran) 4 mg IVPUSH Q4H PRN PRN Reason: Nausea/Vomiting Oxycodone/Acetaminophen (Percocet 325-5 Mg) 1 tab PO ONETIME PRN PRN Reason: Pain (moderate 4-6) Oxycodone/Acetaminophen (Percocet 325-5 Mg) 1 tab PO Q4H PRN PRN Reason: Pain (moderate 4-6) Last Admin: 03/21/20 06:53 Dose: 1 tab Documented by: Oxycodone/Acetaminophen (Percocet 325-5 Mg) 2 tab PO Q4H PRN PRN Reason: Pain (moderate 4-6) Last Admin: 03/21/20 00:17 Dose: 2 tab Documented by: Oxytocin (Pitocin) 10 unit IM ASDIRECTED PRN PRN Reason: Excessive Vaginal Bleeding Sodium Chloride (Saline Flush) 10 ml FLUSH ASDIRECTED PRN PRN Reason: Keep Vein Open Sodium Chloride (Saline Flush) 2.5 ml FLUSH ASDIRECTED PRN PRN Reason: Keep Vein Open Sodium Chloride (Normal Saline) 10 ml IV ASDIRECTED PRN PRN Reason: IV Use Discontinued Medications Cefazolin Sodium (Ancef) Confirm Administered Dose 2 gm .ROUTE .STK-MED ONE Stop: 03/19/20 16:21 Citric Acid/Sodium Citrate (Bicitra Solution) 30 ml PO ONETIME ONE Stop: 03/19/20 15:19 Last Admin: 03/19/20 17:15 Dose: 30 ml Documented by: Fentanyl (Sublimaze) 50 mcg IVPUSH Q5M PRN PRN Reason: Pain (severe 7-10) Stop: 03/20/20 16:41 Cefazolin Sodium/Dextrose 2 gm (/ Premix) 50 mls @ 100 mls/hr IV ONETIME ONE Stop: 03/19/20 15:47 Sodium Chloride (Normal Saline) Confirm Administered Dose 20 mls @ as directed .ROUTE .STK-MED ONE Stop: 03/19/20 16:21 Ketorolac Tromethamine (Toradol) 30 mg IVPUSH Q6H EL Stop: 03/20/20 19:01 Last Admin: 03/20/20 18:48 Dose: 30 mg Documented by: Morphine Sulfate (Duramorph Pf) Confirm Administered Dose 10 mg .ROUTE .STK-MED ONE Stop: 03/19/20 16:01 Nalbuphine HCl (Nubain) 2.5 mg IVPUSH Q3H PRN PRN Reason: Pruritis Stop: 03/20/20 16:42 Ondansetron HCl (Zofran) Confirm Administered Dose 4 mg .ROUTE .STK-MED ONE Stop: 03/19/20 15:53 Phenylephrine HCl (Doyle-Synephrine) Confirm Administered Dose 10 mg .ROUTE .STK- MED ONE Stop: 03/19/20 16:05 - Problem List & Annotations (1) delivery delivered SNOMED Code(s): 419564464 Code(s): O82 - ENCOUNTER FOR DELIVERY WITHOUT INDICATION Status: Acute Current Visit: No - Problem List Review Problem List Initiated/Reviewed/Updated: Yes - My Orders Last 24 Hours: My Active Orders 03/21/20 01:00 Ibuprofen [Motrin] 800 mg PO Q8H PRN 03/21/20 Breakfast ADA Diabetic [[place] [employer] Diet] [DIET] - Assessment Assessment:: Agree with assessment - Plan Plan:: As above
[2020-03-21] MEDS: Docusate Sodium 100 MG Cap PO SCH ×2 (09:08→22:21)
[2020-03-22] MEDS: Acetaminophen/oxyCODONE 325-5 MG Tab PO PRN ×3 (03:43→12:52)
[2020-03-22] MEDS: Ibuprofen 800 MG Tab PO PRN (07:24)
[2020-03-22] MEDS: Docusate Sodium 100 MG Cap PO SCH (08:17)
--- NOTE | 2020-03-22 09:35 | PCM.PNPP ---
- General Info Date of Service: 03/22/20 Functional Status: Reports: Pain Controlled, Tolerating Diet, Ambulating, Urinating - Review of Systems General: Reports: No Symptoms HEENT: Reports: No Symptoms Pulmonary: Reports: No Symptoms Cardiovascular: Reports: No Symptoms Gastrointestinal: Reports: No Symptoms Genitourinary: Reports: No Symptoms Musculoskeletal: Reports: No Symptoms Skin: Reports: No Symptoms Neurological: Reports: No Symptoms Psychiatric: Reports: No Symptoms - Patient Data Vital Signs - Most Recent: Last Vital Signs Temp 36.1 C 03/22/20 07:30 Pulse 70 03/22/20 07:30 Resp 16 03/22/20 07:30 BP 111/67 03/22/20 07:30 Pulse Ox 99 03/22/20 07:30 Weight - Most Recent: 148 lb Lab Results - Last 24 Hours: Laboratory Results - last 24 hr 03/19/20 Range/Units 15:15 RPR Non-Reac (Non-Reac) Med Orders - Current: Current Medications Hydrocodone Bitart/Acetaminophen ([place] 325-5 Mg) 2 tab PO Q4H PRN PRN Reason: Pain (moderate 4-6) Bisacodyl (Dulcolax) 10 mg RECTAL ONETIME PRN PRN Reason: Constipation Diphenhydramine HCl (Benadryl) 25 mg IVPUSH Q6H PRN PRN Reason: Itching or Nausea Last Admin: 03/20/20 11:47 Dose: 25 mg Documented by: Docusate Sodium (Colace) 100 mg PO BID [facility] Last Admin: 03/22/20 08:17 Dose: 100 mg Documented by: Emollient Ointment (Lansinoh Hpa) 0 gm TOP ASDIRECTED PRN PRN Reason: Sore Nipples Last Admin: 03/21/20 09:09 Dose: 1 packet Documented by: Dextrose/Lactated Ringer's (Dextrose 5%-Lactated Ringers) 1,000 mls @ 500 ml s/hr IV BOLUS [facility] Last Admin: 03/19/20 15:05 Dose: 500 mls/hr Documented by: Oxytocin/Sodium Chloride (Oxytocin 30 Unit/500 Ml-Ns) 30 unit in 500 mls @ 250 mls/hr IV TITRATE EL Lactated Ringer's (Ringers, Lactated) 1,000 mls @ 125 mls/hr IV ASDIRECTED EL Last Admin: 03/20/20 00:10 Dose: 125 mls/hr Documented by: Lactated Ringer's (Ringers, Lactated) 1,000 mls @ 125 mls/hr IV ASDIRECTED EL Oxytocin/Lactated Ringer's (Pitocin In Lr 30 Units/500 Ml) 30 unit in 500 mls @ 125 mls/hr IV TITRATE EL; Protocol Tranexamic Acid 1,000 mg/ (Sodium Chloride) 110 mls @ 660 mls/hr IV ONETIME PRN PRN Reason: Bleeding Ibuprofen (Motrin) 800 mg PO Q8H PRN PRN Reason: mild pain or fever Last Admin: 03/22/20 07:24 Dose: 800 mg Documented by: Methylergonovine Maleate (Methergine) 0.2 mg IM ONETIME PRN PRN Reason: Excessive Vaginal Bleeding Misoprostol (Cytotec) 1,000 mcg RECTAL ONETIME PRN PRN Reason: excessive bleeding Ondansetron HCl (Zofran) 4 mg IVPUSH Q4H PRN PRN Reason: Nausea/Vomiting Oxycodone/Acetaminophen (Percocet 325-5 Mg) 1 tab PO ONETIME PRN PRN Reason: Pain (moderate 4-6) Oxycodone/Acetaminophen (Percocet 325-5 Mg) 1 tab PO Q4H PRN PRN Reason: Pain (moderate 4-6) Last Admin: 03/21/20 06:53 Dose: 1 tab Documented by: Oxycodone/Acetaminophen (Percocet 325-5 Mg) 2 tab PO Q4H PRN PRN Reason: Pain (moderate 4-6) Last Admin: 03/22/20 08:17 Dose: 2 tab Documented by: Oxytocin (Pitocin) 10 unit IM ASDIRECTED PRN PRN Reason: Excessive Vaginal Bleeding Sodium Chloride (Saline Flush) 10 ml FLUSH ASDIRECTED PRN PRN Reason: Keep Vein Open Sodium Chloride (Saline Flush) 2.5 ml FLUSH ASDIRECTED PRN PRN Reason: Keep Vein Open Sodium Chloride (Normal Saline) 10 ml IV ASDIRECTED PRN PRN Reason: IV Use Discontinued Medications Cefazolin Sodium (Ancef) Confirm Administered Dose 2 gm .ROUTE .[facility]-MED ONE Stop: 03/19/20 16:21 Citric Acid/Sodium Citrate (Bicitra Solution) 30 ml PO ONETIME ONE Stop: 03/19/20 15:19 Last Admin: 03/19/20 17:15 Dose: 30 ml Documented by: Fentanyl (Sublimaze) 50 mcg IVPUSH Q5M PRN PRN Reason: Pain (severe 7-10) Stop: 03/20/20 16:41 Cefazolin Sodium/Dextrose 2 gm (/ Premix) 50 mls @ 100 mls/hr IV ONETIME ONE Stop: 03/19/20 15:47 Sodium Chloride (Normal Saline) Confirm Administered Dose 20 mls @ as directed .ROUTE .STK-MED ONE Stop: 03/19/20 16:21 Ketorolac Tromethamine (Toradol) 30 mg IVPUSH Q6H EL Stop: 03/20/20 19:01 Last Admin: 03/20/20 18:48 Dose: 30 mg Documented by: Morphine Sulfate (Duramorph Pf) Confirm Administered Dose 10 mg .ROUTE .STK-MED ONE Stop: 03/19/20 16:01 Nalbuphine HCl (Nubain) 2.5 mg IVPUSH Q3H PRN PRN Reason: Pruritis Stop: 03/20/20 16:42 Ondansetron HCl (Zofran) Confirm Administered Dose 4 mg .ROUTE .STK-MED ONE Stop: 03/19/20 15:53 Phenylephrine HCl (Doyle-Synephrine) Confirm Administered Dose 10 mg .ROUTE .STK- MED ONE Stop: 03/19/20 16:05 - Infant Interaction Infant Disposition, : in Room with Family Interaction: Holding Infant Feeding: Attempted ; Nursed Fair/Poor (Having trouble latching) Support Person: Significant Other - Recovery Exam Fundal Tone: Firm Fundal Level: 1 Fingerbreadths Below Umbilicus Fundal Placement: Midline Lochia Amount: Scant Lochia Color: Rubra/Red Perineum Description: Intact, Minimal Bruising/Swelling Episiotomy/Laceration: None Bladder Status: Voiding Urinary Elimination: Voided - Exam General: Alert, Oriented, Cooperative, No Acute Distress HEENT: Pupils Equal, Pupils Reactive Neck: Supple, Trachea Midline, No JVD Lungs: Normal Respiratory Effort GI/Abdominal Exam: Soft, Non-Tender, No Distention, Other (Incison healing well, c/d/i) Extremities: Normal Inspection, Normal Range of Motion, Non-Tender, No Pedal Edema, Other Skin: Warm, Dry, Intact Wound/Incisions: Healing Well Neurological: No New Focal Deficit Psy/Mental Status: Alert, Normal Affect, Normal Mood - Problem List Review Problem List Initiated/Reviewed/Updated: Yes - Assessment Assessment:: 24yo POD3 s/p RLTCS - Plan Plan:: Feeling well. Pain controlled. Blood sugars stable. Stable for discharge home, meeting milestones.
== END 2020-03-22 12:24 | disposition home or self-care (01) | DRG 786 ==
LOC: MW.OB 13:41 → MW.OBCHECK 13:41 → MW.OB 15:18 → MW.OBCHECK 15:18 → MW.OB 21:33
PROVIDERS: ADMIT Obstetrics & Gynecology; ATTEND Obstetrics & Gynecology
PROC: 10D00Z1 Extraction of Products of Conception, Low, Open Approach (ICD-10-PCS; principal; 2020-03-19)
DX: O34.211 Maternal care for low transverse scar from previous cesarean delivery (principal); O24.02 Pre-existing type 1 diabetes mellitus, in childbirth; O42.02 Full-term premature rupture of membranes, onset of labor within 24 hours of rupture; Z37.0 Single live birth; Z3A.37 37 weeks gestation of pregnancy; O36.5930 Maternal care for other known or suspected poor fetal growth, third trimester, not applicable or unspecified; O99.824 Streptococcus B carrier state complicating childbirth; E10.9 Type 1 diabetes mellitus without complications; Z11.59 Encounter for screening for other viral diseases
CPT/HCPCS: 01961; 36415; 59025; 81003; 84112; 85014; 85018; 85027; 86592; 86850; 86900; 86901; A9270-GY; J0690; J1200; J1885; J2270; J2370; J2405; J7120; J7121; U0002

== ENCOUNTER 2021-05-27 10:31 | Emergency (ER) | payer MEDICAID ==
[2021-05-27] MEDS ORDERED: Ketorolac 30 MG/ML SDV IVPUSH ONE (10:51)
[2021-05-27] MEDS ORDERED: diphenhydrAMINE 50 MG/ML SDV IVPUSH ONE (10:51)
[2021-05-27] MEDS ORDERED: Metoclopramide 10 MG/2 ML SDV IV ONE (10:51)
[2021-05-27] MEDS ORDERED: Sodium Chloride 0.9% 1,000 ML IV ONE (10:51)
[2021-05-27] MEDS ORDERED: Ondansetron 4 MG/2 ML SDV IVPUSH ONE (10:51)
--- NOTE | 2021-05-27 11:02 | EDM.PDOC ---
ED HPI GENERAL MEDICAL PROBLEM - General Chief Complaint: Headache Stated Complaint: HEAD PAIN Time Seen by Provider: 05/27/21 10:48 Source of Information: Reports: Patient History Limitations: Reports: No Limitations - History of Present Illness INITIAL COMMENTS - FREE TEXT/NARRATIVE: HISTORY AND PHYSICAL: History of present illness: Patient is a 26-year-old female who presents to the emergency room with complaints of headache, light sensitivity, noise sensitivity, nausea and vomiting. She states she has had a dull headache over the past 1 week, significantly worse today. Initially pain started as a frontal/generalized headache pain, today pain has been more prevalent on the right side of the frontal scalp wrapping to the base of the neck. Patient does have a history of headaches although feels this 1 is more severe than previous. She had Type I DM, sugars have been elevated. She takes insulin accordingly. Patient denies any fever, chills, change in vision, syncope or near syncope. Denies any chest pain, back pain, shortness of breath or cough. Denies any abdominal pain, diarrhea, constipation or dysuria. Has not noted any blood in urine or stool. Patient has been eating and drinking appropriately. No recent travel or sick contacts. Review of systems: As per history of present illness and below otherwise all systems reviewed and negative. Past medical history: As per history of present illness and as reviewed below otherwise noncontributory. Surgical history: As per history of present illness and as reviewed below otherwise noncontributory. Social history: See social history for further information Family history: As per history of present illness and as reviewed below otherwise noncontributory. Physical exam: General: Well developed and well nourished. Alert and orientated x 3. Nontoxic in appearance and in no acute distress. Vital signs are stable and have been reviewed by me. Nursing notes were reviewed. HEENT: Atraumatic, normocephalic, pupils equal and reactive bilaterally, negative for conjunctival pallor or scleral icterus, mucous membranes moist, right-sided maxillary frontal sinus tenderness with palpation, TMs normal bilaterally, throat clear, neck supple, nontender, trachea midline. No drooling or trismus noted. No meningeal signs. No hot potato voice noted. Lungs: Clear to auscultation bilaterally. No wheezes, rales, or rhonchi. Chest nontender. Normal work of breathing, no accessory muscles used. Heart: S1S2, regular rate and rhythm without overt murmur, gallops, or rubs. No JVD. No peripheral edema Abdomen: Soft, nondistended, nontender. Normoactive bowel sounds. Negative for masses or costovertebral tenderness. C-spine/Back: No pinpoint vertebral tenderness upon palpation. No crepitus, step-offs or obvious deformities. Patient is ambulatory into the emergency room without difficulty or deficit. Denies any urinary or fecal incontinence. Denies any numbness, tingling or saddle paresthesia. No concerns of serious infection, fracture or cord compression, or cauda equina syndrome. Deep tendon reflexes brisk bilaterally. Skin: Intact, warm, dry. No lesions or rashes noted. Hematologic: No petechiae or purpra. Mucosa appropriate color and normal nail bed color and refill. Extremities: Atraumatic, moves all extremities per self without difficulty or deficits, negative for cords or calf pain. Neurovascular unremarkable. Neuro: Awake, alert, oriented. Cranial nerves II through XII unremarkable. Cerebellum unremarkable. Motor and sensory unremarkable throughout. Exam nonfocal. Psychiatric: Mood and affect are appropriate. Normal thought process. Answering questions appropriately. Please note that the patient was seen and evaluated during the 2019 SARS-CoV-2 novel coronavirus pandemic period. Community viral transmission is ongoing at time of this encounter and the emergency department is operating under pandemic response procedures. Medical Decision Making: We discussed imaging, she would like to proceed with a head CT. She has no concerns of and does not want to be tested. I also offered labs and COVID testing, she declines. She does have a ride, will give her a migraine cocktail. VSS. No gross intracranial abnormalities. Right maxillary and right ethmoid sinus mucosal thickening. I have talked with the patient about today's findings, in addition to providing specific details for plan of care. Will treat with Augmentin. Reassessment at the time of disposition demonstrates that the patient is in no acute distress. Pain has improved, feels comfortable being discharged home. Vital signs are stable. The patient is stable for discharge, counseling was provided and we discussed in great detail signs and symptoms that would prompt them to return to the Emergency Department. Medication, follow up and supportive care measures were reviewed and discussed. Voices understanding and is agreeable to plan of care. Denies any further questions or concerns at this time. Diagnostics: CT head, blood glucose Therapeutics: IV fluid, Zofran, Toradol, Reglan, Benadryl Prescription: Augmentin Impression: Migraine Sinusitis Plan: 1. You were evaluated today on an emergent basis. Your CT shows maxillary and ethmoid sinus thickening (sinus infection). Will treat with antibiotics. 2. Continue to monitor your blood sugars closely. You can alternate Tylenol and ibuprofen as needed for pain and fever management. 3. We encourage you to follow up with your primary care provider and/or recommended specialist in the next few days for re-evaluation and further care/management. 4. If your symptoms should worsen, new symptoms develop or any of the signs and symptoms we discussed should arise please return to the emergency room or call 911 (if needed). Definitive disposition and diagnosis as appropriate pending reevaluation and review of above. headache Pain Score (Numeric/FACES): 10 - Related Data Allergies Allergy/AdvReac Type Severity Reaction Status Date / Time No Known Allergies Allergy Verified 03/12/20 09:29 Home Meds: Home Meds Insulin Lispro [Humalog] 1 injection .ROUTE ASDIRECTED 05/23/19 [History] valACYclovir [Valtrex] 500 mg PO DAILY PRN 05/23/19 [History] Aspirin [Adult Aspirin Regimen] 81 mg PO DAILY 03/12/20 [History] Omeprazole 1 tab PO DAILY 03/12/20 [History] Pnv No.95/Ferrous Fum/Folic AC [ Vitamin Tablet] 1 tab PO DAILY 03/12/20 [History] Ibuprofen [Motrin] 800 mg PO Q8H PRN 7 Days #30 tablet 03/21/20 [Rx] Amoxicillin/Clavulanate K [Augmentin 875-125 MG] 1 tab PO BID 7 Days #14 tablet 05/27/21 [Rx] Past Medical History HEENT History: Reports: None Cardiovascular History: Reports: None Respiratory History: Reports: None Gastrointestinal History: Reports: GERD Genitourinary History: Reports: Other (See Below) Other Genitourinary History: finished antibiotics today 03/12/20 for UTI 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: , Spontaneous Musculoskeletal History: Reports: None Neurological History: Reports: Concussion Psychiatric History: Reports: None Endocrine/Metabolic History: Reports: Diabetes, Type I Hematologic History: Reports: None Immunologic History: Reports: None Oncologic (Cancer) History: Reports: None Dermatologic History: Reports: Eczema - Infectious Disease History Infectious Disease History: Reports: Other (See Below) Other Infectious Disease History: HSV1 - Past Surgical History Head Surgeries/Procedures: Reports: None HEENT Surgical History: Reports: None Cardiovascular Surgical History: Reports: None Respiratory Surgical History: Reports: None GI Surgical History: Reports: None Female Surgical History: Reports: Section Endocrine Surgical History: Reports: None Neurological Surgical History: Reports: None Musculoskeletal Surgical History: Reports: Other (See Below) Other Musculoskeletal Surgeries/Procedures:: surgical repair of fx left pinky finger Oncologic Surgical History: Reports: None Dermatological Surgical History: Reports: Other (See Below) Social & Family History - Family History Family Medical History: No Pertinent Family History - Caffeine Use Caffeine Use: Reports: Coffee, Soda ED ROS GENERAL - Review of Systems Review Of Systems: Comprehensive ROS is negative, except as noted in HPI. - Physical Exam Exam: See Below (See dictation) Course - Vital Signs Last Recorded V/S: Last Vital Signs Temp 97.6 F 05/27/21 10:46 Pulse 79 05/27/21 12:38 Resp 16 05/27/21 12:38 BP 101/61 05/27/21 12:38 Pulse Ox 98 05/27/21 12:38 - Orders/Labs/Meds Meds: Medications Discontinued Medications Generic Name Dose Route Start Last Admin Trade Name Jeanna PRN Reason Stop Dose Admin Diphenhydramine HCl 50 mg 05/27/21 10:51 05/27/21 11:31 Diphenhydramine 50 Mg/Ml Sdv IVPUSH 05/27/21 10:52 50 mg ONETIME ONE Administration Sodium Chloride 1,000 mls @ 999 mls/hr 05/27/21 10:51 05/27/21 11:28 Normal Saline IV 05/27/21 11:51 999 mls/hr STAT ONE Administration Ketorolac Tromethamine 30 mg 05/27/21 10:51 05/27/21 11:33 Ketorolac 30 Mg/Ml Sdv IVPUSH 05/27/21 10:52 30 mg ONETIME ONE Administration Metoclopramide HCl 10 mg 05/27/21 10:51 05/27/21 11:35 Metoclopramide 10 Mg/2 Ml Sdv IV 05/27/21 10:52 10 mg ONETIME ONE Administration Ondansetron HCl 4 mg 05/27/21 10:51 05/27/21 11:29 Ondansetron 4 Mg/2 Ml Sdv IVPUSH 05/27/21 10:52 4 mg ONETIME ONE Administration Departure - Departure Time of Disposition: 11:41 Disposition: Home, Self-Care 01 Clinical Impression: Migraine, Sinusitis - Discharge Information Prescriptions: Amoxicillin/Clavulanate K [Augmentin 875-125 MG] 1 tab PO BID 7 Days #14 tablet Instructions: Sinus Headache, [id number] Referrals: Jose Polanco MD [Primary Care Provider] - Forms: ED Department Discharge Additional Instructions: The following information is given to patients seen in the emergency department who are being discharged to home. This information is to outline your options for follow-up care. We provide all patients seen in our emergency department with a follow-up referral. The need for follow-up, as well as the timing and circumstances, are variable depending upon the specifics of your emergency department visit. If you don't have a primary care physician on staff, we will provide you with a referral. We always advise you to contact your personal physician following an emergency department visit to inform them of the circumstance of the visit and for follow-up with them and/or the need for any referrals to a consulting s pecialist. The emergency department will also refer you to a specialist when appropriate. This referral assures that you have the opportunity for follow-up care with a specialist. All of these measure are taken in an effort to provide you with optimal care, which includes your follow-up. Under all circumstances we always encourage you to contact your private physician who remains a resource for coordinating your care. When calling for follow-up care, please make the office aware that this follow-up is from your recent emergency room visit. If for any reason you are refused follow-up, please contact the [facility] at and asked to speak to the emergency department charge nurse. [facility] [address] [place] [id number] [address] [place] [address] Thank you for choosing the [facility] emergency department in [place] for your medical needs today. It was a pleasure caring for you. Today you were seen in the emergency department for sinusitis. 1. You were evaluated today on an emergent basis. Your CT shows maxillary and ethmoid sinus thickening (sinus infection). Will treat with antibiotics. 2. Continue to monitor your blood sugars closely. You can alternate Tylenol and ibuprofen as needed for pain and fever management. 3. We encourage you to follow up with your primary care provider and/or recommended specialist in the next few days for re-evaluation and further care/management. 4. If your symptoms should worsen, new symptoms develop or any of the signs and symptoms we discussed should arise please return to the emergency room or call 911 (if needed). Sepsis Event Note (ED) - Evaluation Sepsis Screening Result: No Definite Risk - Focused Exam Vital Signs: Vital Signs Temp Pulse Resp BP Pulse Ox 05/27/21 12:38 79 16 101/61 98 05/27/21 10:46 97.6 F 81 16 109/74 100
--- NOTE | 2021-05-27 11:26 | CT ---
INDICATION: Onset headaches TECHNIQUE: CT head without contrast. COMPARISON: None FINDINGS: CSF spaces: Within normal limits for age. Brain parenchyma: The vázquez-white differentiation is normal. No sign of mass, hemorrhage, or midline shift. Skull base and calvarium: Right maxillary and ethmoid sinus mucosal thickening. The visualized orbits are grossly unremarkable. No skull fractures. IMPRESSION: No gross intracranial abnormalities. Right maxillary and right ethmoid sinus mucosal thickening. Please note that all CT scans at this facility use dose modulation, iterative reconstruction, and/or weight-based dosing when appropriate to reduce radiation dose to as low as reasonably achievable. Dictated by Juma Rendon MD @ 05/27/2021 11:24:20 AM (Electronically Signed)
== END 2021-05-27 12:34 | disposition home or self-care (01) ==
LOC: MW.ED 10:31
DX: G43.909 Migraine, unspecified, not intractable, without status migrainosus (principal); J32.9 Chronic sinusitis, unspecified; K21.9 Gastro-esophageal reflux disease without esophagitis; E10.9 Type 1 diabetes mellitus without complications; Z79.82 Long term (current) use of aspirin; Z79.899 Other long term (current) drug therapy
CPT/HCPCS: 70450; 82947; 96374; 96375; 99284; J1200; J1885; J2405; J2765; J7030